=== PATIENT | male | born 1945 | race African-American/Black ===

== ENCOUNTER 2017-02-01 14:43 | Inpatient (IN) | payer MEDICARE, MEDICAID ==
[~2017-02-01] VITALS: Ht 172.7 cm; Wt 73.0 kg
[~2017-02-01 14:43] MED LIST: AMLO10TA4 PO; ASPI-1159 PO; ATOR-2 PO; INSU3INS6 SUBCUT; METO100T5 PO; NIFE30TA94 PO; OMEP40CA34 PO; TOBR5DRO45 OP; metoprolol
[2017-02-01] MEDS ORDERED: SODIUM CHLORIDE 0.9% 1,000 ML IV ONE (16:36)
[2017-02-01] MEDS ORDERED: ASPIRIN 81MG TABLET PO ONE (16:45)
[2017-02-01 17:04] LABS: HEMATOCRIT. 33.3 % (42.0-52.0); HEMOGLOBIN. 10.9 g/dL (14.0-18.0); MEAN CORPUSCULAR HEMOGLOBIN 28.2 pg (28.0-32.0); MEAN CORPUSCULAR VOLUME 86.5 fL (80.0-94.0); MEAN PLATELET VOLUME 8.3 fl (7.4-10.4); PLATELET 152 x1000/uL (130-400); RED BLOOD CELL COUNT 3.85 mill/uL (4.7-6.1); RED CELL DISTRIBUTION WIDTH 20.3 % (11.6-14.6)
[2017-02-01 17:11] LABS: INR 1.2; PARTIAL THROMBOPLASTIN TIME 26.8 sec (23.4-31.0)
[2017-02-01] MEDS ORDERED: ONDANSETRON HCL 4MG/2ML VIAL IV STA (17:14)
[2017-02-01] MEDS ORDERED: MORPHINE SULFATE 4 MG/ML CPJ (NOT FOR IM USE) IV STA (17:14)
[2017-02-01 17:18] LABS: CARBON DIOXIDE 28 mEq/L (21-32); CHLORIDE 106 mEq/L (98-107); TROPONIN I 0.07 ng/mL (0.00-0.04)
[2017-02-01 17:19] LABS: CREATINE KINASE MB FRACTION 2.2 ng/mL (0.5-3.6)
[2017-02-01 17:26] LABS: PLATELET ESTIMATE NORMAL
[2017-02-01] MEDS ORDERED: POTASSIUM CHLORIDE 20MEQ TABLET SR PO ONE (18:30)
[2017-02-01] MEDS ORDERED: HYDRALAZINE 20MG/ML VIAL IV ONE (22:45)
[2017-02-01] MEDS ORDERED: DOCUSATE SODIUM 100MG CAPSULE PO PRN (23:45)
[2017-02-01] MEDS ORDERED: IPRATROPIUM/ALBUTEROL 0.5-3(2.5)MG/3ML NEB INH PRN (23:45)
[2017-02-01] MEDS ORDERED: ACETAMINOPHEN 325MG TABLET PO PRN (23:45)
[2017-02-01] MEDS ORDERED: GUAIFENESIN 200MG/10ML SUGAR FREE UDC PO PRN (23:45)
[2017-02-01] MEDS ORDERED: ACETAMINOPHEN 650MG SUPP PR PRN (23:45)
[2017-02-01] MEDS ORDERED: DIPHENHYDRAMINE 50MG/ML VIAL IV PRN (23:45)
[2017-02-01] MEDS ORDERED: ACETAMINOPHEN 650MG/20.3ML UDC GT PRN (23:45)
[2017-02-01] MEDS ORDERED: ONDANSETRON HCL 4MG/2ML VIAL IV PRN (23:45)
[2017-02-01] MEDS ORDERED: CLONIDINE 0.1MG TABLET PO PRN (23:45)
[2017-02-01] MEDS ORDERED: ENOXAPARIN 40MG/0.4ML SYR SUBCUT SCH (23:45)
[2017-02-01] MEDS ORDERED: MAGNESIUM/ALUMINUM HYDROXIDE/SIMETHICONE 30ML UDC PO PRN (23:45)
[2017-02-02] MEDS ORDERED: OXYC30TA89 PO (00:03)
[2017-02-02] MEDS ORDERED: LOPE2TAB26 PO (00:03)
[2017-02-02] MEDS ORDERED: ISOS60TA4 PO (00:03)
[2017-02-02 04:00] VITALS: BP 145/73
[2017-02-02] MEDS: MORPHINE SULFATE 2 MG/ML CPJ (NOT FOR IM USE) IV PRN ×2 (04:56→20:51)
[2017-02-02 05:00] VITALS: BP 145/73
[2017-02-02] MEDS ORDERED: NA PHOS,M-B/NA PHOS,DI-BA ENEMA 118ML PR PRN (05:04)
[2017-02-02] MEDS: SODIUM CHLORIDE 0.9% INJ 3ML FLUSH IVF SCH ×3 (06:27→20:44)
[2017-02-02 08:00] VITALS: BP 144/90
[2017-02-02 08:30] LABS: HEMATOCRIT. 33.8 % (42.0-52.0); MEAN CORPUSCULAR VOLUME 86.1 fL (80.0-94.0); MEAN PLATELET VOLUME 8.6 fl (7.4-10.4); PLATELET 157 x1000/uL (130-400); RED BLOOD CELL COUNT 3.93 mill/uL (4.7-6.1); RED CELL DISTRIBUTION WIDTH 19.9 % (11.6-14.6)
[2017-02-02] MEDS ORDERED: ENOXAPARIN 30MG/0.3ML SYR SUBCUT SCH ×2 (09:00→21:00)
[2017-02-02 09:01] LABS: TROPONIN I 0.09 ng/mL (0.00-0.04)
[2017-02-02] MEDS ORDERED: POTASSIUM CHLORIDE 20MEQ TABLET SR PO NR (09:30)
[2017-02-02 09:50] LABS: PLATELET ESTIMATE NORMAL
[2017-02-02 11:22] LABS: T4 FREE 1.58 ng/dL (0.76-1.46)
[2017-02-02 12:00] VITALS: BP 153/83
[2017-02-02] MEDS ORDERED: DEXTROSE 50% WATER 50ML SYRINGE IV PRN (12:30)
[2017-02-02] MEDS: BLOOD SUGAR DIAGNOSTIC STRIP TEST SCH ×3 (12:40→20:47)
[2017-02-02] MEDS: INSULIN LISPRO 100 UNITS/ML SUBCUT SCH ×3 (13:10→20:50)
[2017-02-02] MEDS: METOPROLOL TARTRATE 50MG TABLET PO SCH ×2 (14:10→20:44)
[2017-02-02] MEDS: ISOSORBIDE MONONITRATE 60MG TABLET SR 24HR PO SCH (14:10)
[2017-02-02] MEDS ORDERED: ENOXAPARIN 40MG/0.4ML SYR SUBCUT NR (15:15)
[2017-02-02 16:00] VITALS: BP_SYST 134; BP_SYST 140; BP_DIAS 85; BP_DIAS 87
[2017-02-02 16:38] LABS: CREATINE KINASE MB FRACTION 2.8 ng/mL (0.5-3.6); TROPONIN I 0.09 ng/mL (0.00-0.04)
[2017-02-02 20:07] VITALS: BP 110/60
[2017-02-02] MEDS: ATORVASTATIN CALCIUM 40MG TABLET PO SCH (20:43)
[2017-02-03 00:13] VITALS: BP_SYST 130; BP_SYST 139; BP_DIAS 73; BP_DIAS 77
[2017-02-03 04:00] VITALS: BP 146/68
[2017-02-03] MEDS: SODIUM CHLORIDE 0.9% INJ 3ML FLUSH IVF SCH ×2 (05:22→21:39)
[2017-02-03 06:44] LABS: HEMATOCRIT. 30.8 % (42.0-52.0); MEAN CORPUSCULAR VOLUME 86.1 fL (80.0-94.0); MEAN PLATELET VOLUME 9.1 fl (7.4-10.4); PLATELET 149 x1000/uL (130-400); RED BLOOD CELL COUNT 3.58 mill/uL (4.7-6.1); RED CELL DISTRIBUTION WIDTH 20.5 % (11.6-14.6)
[2017-02-03 07:14] LABS: CREATINE KINASE MB FRACTION 2.7 ng/mL (0.5-3.6); PHOSPHORUS 2.3 mg/dL (2.5-4.9)
[2017-02-03] MEDS: BLOOD SUGAR DIAGNOSTIC STRIP TEST SCH ×4 (07:40→21:41)
[2017-02-03 08:00] VITALS: BP 163/80
[2017-02-03] MEDS: INSULIN LISPRO 100 UNITS/ML SUBCUT SCH ×4 (08:10→21:41)
[2017-02-03] MEDS ORDERED: ENOXAPARIN 30MG/0.3ML SYR SUBCUT SCH (09:00)
[2017-02-03] MEDS: PANTOPRAZOLE 40MG DR TABLET PO SCH (09:08)
[2017-02-03] MEDS: ISOSORBIDE MONONITRATE 60MG TABLET SR 24HR PO SCH (09:08)
[2017-02-03] MEDS: NIFEDIPINE XL 30MG TAB PO SCH (09:08)
[2017-02-03] MEDS: FOLIC ACID/VITAMIN B COMP W-C TABLET PO SCH (09:08)
[2017-02-03] MEDS: ASPIRIN 81MG TABLET PO SCH (09:09)
[2017-02-03] MEDS: METOPROLOL TARTRATE 50MG TABLET PO SCH ×2 (09:09→21:40)
[2017-02-03] MEDS: ENOXAPARIN 80MG/0.8ML SYR SUBCUT SCH (09:10)
[2017-02-03] MEDS ORDERED: POTASSIUM CHLORIDE 20MEQ TABLET SR PO NR (09:45)
[2017-02-03] MEDS: HYDROCODONE/ACETAMINOPHEN 5/325MG TABLET PO PRN ×2 (11:35→23:42)
[2017-02-03 12:00] VITALS: BP 140/80
[2017-02-03] MEDS: SUCRALFATE 1G TABLET PO SCH ×3 (12:40→21:40)
[2017-02-03] MEDS: MORPHINE SULFATE 2 MG/ML CPJ (NOT FOR IM USE) IV PRN ×2 (14:52→21:42)
[2017-02-03 16:00] VITALS: BP 138/79
[2017-02-03 17:48] LABS: PLATELET ESTIMATE NORMAL
[2017-02-03 20:40] VITALS: BP 132/70
[2017-02-03] MEDS: ATORVASTATIN CALCIUM 40MG TABLET PO SCH (21:40)
[2017-02-04 01:49] VITALS: BP 143/84
[2017-02-04 04:00] VITALS: BP 150/69
[2017-02-04] MEDS: SODIUM CHLORIDE 0.9% INJ 3ML FLUSH IVF SCH ×2 (04:56→13:07)
[2017-02-04 06:38] LABS: HEMATOCRIT. 30.9 % (42.0-52.0); HEMOGLOBIN. 10.2 g/dL (14.0-18.0); MEAN CORPUSCULAR HEMOGLOBIN 28.7 pg (28.0-32.0); MEAN CORPUSCULAR VOLUME 87.3 fL (80.0-94.0); MEAN PLATELET VOLUME 8.8 fl (7.4-10.4); PLATELET 139 x1000/uL (130-400); RED BLOOD CELL COUNT 3.54 mill/uL (4.7-6.1); RED CELL DISTRIBUTION WIDTH 20.3 % (11.6-14.6)
[2017-02-04 07:03] LABS: PREALBUMIN 22.6 mg/dL (20.0-40.0)
[2017-02-04] MEDS: INSULIN LISPRO 100 UNITS/ML SUBCUT SCH (07:59)
[2017-02-04] MEDS: BLOOD SUGAR DIAGNOSTIC STRIP TEST SCH (07:59)
[2017-02-04 08:00] VITALS: BP 144/89
[2017-02-04] MEDS ORDERED: POTASSIUM CHLORIDE 20MEQ TABLET SR PO SCH (09:00)
[2017-02-04] MEDS: NIFEDIPINE XL 30MG TAB PO SCH (09:34)
[2017-02-04] MEDS: ASPIRIN 81MG TABLET PO SCH (09:35)
[2017-02-04] MEDS: ISOSORBIDE MONONITRATE 60MG TABLET SR 24HR PO SCH (09:35)
[2017-02-04] MEDS: METOPROLOL TARTRATE 50MG TABLET PO SCH (09:35)
[2017-02-04] MEDS: PANTOPRAZOLE 40MG DR TABLET PO SCH (09:35)
[2017-02-04] MEDS: FOLIC ACID/VITAMIN B COMP W-C TABLET PO SCH (09:35)
[2017-02-04] MEDS: ENOXAPARIN 80MG/0.8ML SYR SUBCUT SCH (09:36)
[2017-02-04] MEDS ORDERED: POTASSIUM PHOS,M-BASIC-D-BASIC 20 MMOL in DEXT 5% WATER 250 ML IV SCH (10:30)
[2017-02-04 12:00] VITALS: BP 141/86
[2017-02-04 13:00] VITALS: BP 141/82
[2017-02-04 16:00] VITALS: BP 148/89
[2017-02-04 16:52] LABS: PLATELET ESTIMATE SLIGHTLY DECREASED
[2017-02-05] MEDS ORDERED: FAMOTIDINE 20MG TABLET PO SCH (07:40)
[2017-02-05 09:06] LABS: A/G RATIO 0.9 (0.7-1.7); ALBUMIN 3.2 g/dL (2.9-4.4); ALPHA-1-GLOBULIN 0.2 g/dL (0.0-0.4); ALPHA-2-GLOBULIN 0.6 g/dL (0.4-1.0); BETA GLOBULIN 0.7 g/dL (0.7-1.3); GLOBULIN TOTAL 3.6 g/dL (2.2-3.9); M-SPIKE 0.5 g/dL (Not Observed); TOTAL PROTEIN SERUM 6.8 g/dL (6.0-8.5)
== END 2017-02-04 19:04 | disposition home or self-care (01) | DRG 291 ==
LOC: ER 14:43 → 7WST 02-02 00:10 → EDBEDREQ 02-02 00:14 → ENRESERV 02-02 01:49
PROVIDERS: ADMIT Family Medicine; ATTEND Family Medicine
DX: I13.2 Hypertensive heart and chronic kidney disease with heart failure and with stage 5 chronic kidney disease, or end stage renal disease (principal); N18.6 End stage renal disease; N17.9 Acute kidney failure, unspecified; I82.402 Acute embolism and thrombosis of unspecified deep veins of left lower extremity; E46 Unspecified protein-calorie malnutrition; I27.20 Pulmonary hypertension, unspecified; E83.39 Other disorders of phosphorus metabolism; E11.22 Type 2 diabetes mellitus with diabetic chronic kidney disease; I50.23 Acute on chronic systolic (congestive) heart failure; R55 Syncope and collapse; I42.9 Cardiomyopathy, unspecified; D64.9 Anemia, unspecified; I35.1 Nonrheumatic aortic (valve) insufficiency; D72.819 Decreased white blood cell count, unspecified; E78.5 Hyperlipidemia, unspecified; E87.6 Hypokalemia; F12.90 Cannabis use, unspecified, uncomplicated; I25.10 Atherosclerotic heart disease of native coronary artery without angina pectoris; K21.9 Gastro-esophageal reflux disease without esophagitis; K40.90 Unilateral inguinal hernia, without obstruction or gangrene, not specified as recurrent; Z79.4 Long term (current) use of insulin; Z82.49 Family history of ischemic heart disease and other diseases of the circulatory system; Z85.830 Personal history of malignant neoplasm of bone; Z86.718 Personal history of other venous thrombosis and embolism; Z87.891 Personal history of nicotine dependence; Z99.2 Dependence on renal dialysis; Z68.24 Body mass index [BMI] 24.0-24.9, adult
CPT/HCPCS: 36415; 71010; 78582; 80048; 80053; 80061; 82550; 82553; 82784; 82962; 83036; 83735; 83880; 84100; 84134; 84155; 84165; 84439; 84443; 84484; 85025; 85379; 85610; 85730; 86334; 87040; 93005; 93306; 93970; 97162; 99285; A9558; J0360; J1650; J1815; J2270; J2405; J3490; J7030; J7050; J7060

== ENCOUNTER 2017-03-30 17:50 | Inpatient (IN) | payer MEDICARE, MEDICAID ==
[~2017-03-30] VITALS: Ht 175.3 cm; Wt 85.3 kg
[~2017-03-30 17:50] MED LIST changes: +ISOS60TA4 PO; +LOPE2TAB26 PO; +METO100T16 PO; -METO100T5 PO; +OXYC30TA89 PO; -metoprolol
[2017-03-30] MEDS ORDERED: MORPHINE SULFATE 2 MG/ML CPJ (NOT FOR IM USE) IV ONE (22:30)
[2017-03-30 23:00] LABS: BASOPHILS % 0.4 % (0.0-2.0); EOSINOPHILS % 13.5 % (0.0-5.0); LYMPHOCYTES % 17.9 % (20.0-50.0); MEAN CORPUSCULAR HEMOGLOBIN 28.9 pg (28.0-32.0); MEAN CORPUSCULAR VOLUME 88.8 fL (80.0-94.0); MEAN PLATELET VOLUME 11.2 fl (7.4-10.4); MONOCYTES % 19.9 % (2.0-8.0); NEUTROPHILS % 48.3 % (40.0-76.0); PLATELET 108 x1000/uL (130-400); RED BLOOD CELL COUNT 2.33 mill/uL (4.7-6.1); RED CELL DISTRIBUTION WIDTH 15.4 % (11.6-14.6)
[2017-03-30 23:03] LABS: HEMATOCRIT. 20.7 % (42.0-52.0); HEMOGLOBIN. 6.7 g/dL (14.0-18.0)
[2017-03-30 23:05] LABS: CHLORIDE 108 mEq/L (98-107)
[2017-03-30 23:13] LABS: CARBON DIOXIDE 27 mEq/L (21-32)
[2017-03-31] VITALS (10 sets, daily range): BP systolic 104–143; BP diastolic 38–80
[2017-03-31] MEDS ORDERED: ACETAMINOPHEN 325MG TABLET PO ONE (02:30)
[2017-03-31] MEDS ORDERED: ONDANSETRON HCL 4MG/2ML VIAL IV PRN (03:45)
[2017-03-31] MEDS ORDERED: DEXTROSE 50% WATER 50ML SYRINGE IV PRN (03:45)
[2017-03-31] MEDS: MORPHINE SULFATE 2 MG/ML CPJ (NOT FOR IM USE) IV PRN (06:05)
[2017-03-31] MEDS: BLOOD SUGAR DIAGNOSTIC STRIP TEST SCH ×2 (06:38→12:28)
[2017-03-31] MEDS: INSULIN LISPRO 100 UNITS/ML SUBCUT SCH ×2 (07:50→12:28)
[2017-03-31] MEDS: PANTOPRAZOLE SODIUM 40 MG/VIAL IV SCH (08:19)
[2017-03-31] MEDS: DOCUSATE SODIUM 100MG CAPSULE PO SCH (08:19)
[2017-03-31] MEDS ORDERED: OXYCODONE HCL 5MG TABLET PO PRN (14:00)
[2017-03-31] MEDS ORDERED: POTASSIUM CHLORIDE 20MEQ/PACKET PO NR (14:15)
[2017-03-31] MEDS ORDERED: FUROSEMIDE 20MG/2ML VIAL IVP NR (14:15)
[2017-03-31] MEDS: ISOSORBIDE MONONITRATE 120MG TABLET SR 24HR PO SCH (15:00)
[2017-03-31 15:02] LABS: CLARITY URINE CLEAR (CLEAR); COLOR URINE YELLOW (YELLOW); KETONES URINE NEGATIVE (NEGATIVE); LEUKOCYTE ESTERASE URINE NEGATIVE (NEGATIVE); NITRITE URINE NEGATIVE (NEGATIVE); OCCULT BLOOD URINE NEGATIVE (NEGATIVE); PROTEIN URINE 1+ (NEGATIVE); SPECIFIC GRAVITY URINE 1.018 (1.005-1.030); UROBILINOGEN URINE 0.2 E.U./dL (0.2-1.0)
[2017-03-31 15:30] LABS: *AMPHETAMINES SCREEN URINE NEGATIVE (NEGATIVE); *BARBITURATES SCREEN URINE NEGATIVE (NEGATIVE); *BENZODIAZEPINES SCREEN URINE NEGATIVE (NEGATIVE); *COCAINE SCREEN URINE NEGATIVE (NEGATIVE); CANNABINOID URINE SCREEN PRESUMTIVE POSITIVE (NEGATIVE); METHADONE URINE SCREEN NEGATIVE (NEGATIVE); OPIATES URINE SCREEN PRESUMTIVE POSITIVE (NEGATIVE); PHENCYCLIDINE URINE SCREEN NEGATIVE (NEGATIVE)
[2017-03-31 16:46] LABS: HEMOGLOBIN. 7.4 g/dL (14.0-18.0); MEAN CORPUSCULAR HEMOGLOBIN 29.3 pg (28.0-32.0); MEAN CORPUSCULAR VOLUME 87.6 fL (80.0-94.0); MEAN PLATELET VOLUME 10.6 fl (7.4-10.4); PLATELET 97 x1000/uL (130-400); RED BLOOD CELL COUNT 2.51 mill/uL (4.7-6.1); RED CELL DISTRIBUTION WIDTH 15.1 % (11.6-14.6)
[2017-03-31 17:54] LABS: PLATELET ESTIMATE MARKEDLY DECREASED
[2017-03-31] MEDS ORDERED: POTASSIUM CHLORIDE 20MEQ TABLET SR PO NR ×2 (18:30→21:45)
[2017-03-31] MEDS: FLUCONAZOLE 100MG TABLET PO SCH (19:05)
[2017-03-31] MEDS: ATORVASTATIN CALCIUM 40MG TABLET PO SCH (20:34)
[2017-03-31] MEDS ORDERED: SORBITOL 70% SOLN 30ML PO NR (21:45)
[2017-04-01] VITALS: BP 133/62
[2017-04-01 06:56] LABS: HEMATOCRIT. 21.5 % (42.0-52.0); HEMOGLOBIN. 7.3 g/dL (14.0-18.0); MEAN CORPUSCULAR HEMOGLOBIN 29.9 pg (28.0-32.0); MEAN CORPUSCULAR VOLUME 87.4 fL (80.0-94.0); MEAN PLATELET VOLUME 10.9 fl (7.4-10.4); PLATELET 94 x1000/uL (130-400); RED BLOOD CELL COUNT 2.46 mill/uL (4.7-6.1)
[2017-04-01 07:20] LABS: CARBON DIOXIDE 24 mEq/L (21-32); CHLORIDE 112 mEq/L (98-107); PHOSPHORUS 2.1 mg/dL (2.5-4.9)
[2017-04-01 08:00] VITALS: BP 139/58
[2017-04-01] MEDS: PANTOPRAZOLE SODIUM 40 MG/VIAL IV SCH (08:54)
[2017-04-01] MEDS: ISOSORBIDE MONONITRATE 120MG TABLET SR 24HR PO SCH (08:55)
[2017-04-01] MEDS: DOCUSATE SODIUM 100MG CAPSULE PO SCH (08:55)
[2017-04-01] MEDS: FLUCONAZOLE 100MG TABLET PO SCH (08:55)
[2017-04-01] MEDS ORDERED: POTASSIUM PHOS,M-BASIC-D-BASIC 10 MMOL in DEXT 5% WATER 246.6667 ML IV SCH (10:00)
[2017-04-01] MEDS ORDERED: MAGNESIUM 1 G PREMIX 100 ML IV SCH (10:00)
[2017-04-01 12:00] VITALS: BP 162/67
[2017-04-01] MEDS ORDERED: VANCOMYCIN 1500MG in DEXTROSE 5% WATER 250ML IV NR ×2 (12:00→16:00)
[2017-04-01] MEDS: MORPHINE SULFATE 2 MG/ML CPJ (NOT FOR IM USE) IV PRN ×2 (12:37→20:02)
[2017-04-01 14:32] LABS: PLATELET ESTIMATE DECREASED
[2017-04-01 16:00] VITALS: BP 168/79
[2017-04-01] MEDS: VANCOMYCIN 1 G PREMIX 200 ML IV SCH ×2 (16:47→16:50)
[2017-04-01] MEDS: CEFTRIAXONE 2 G in DEXTROSE 5% WATER 50 ML IV SCH (18:13)
[2017-04-01 20:00] VITALS: BP 168/80
[2017-04-01] MEDS: CLONIDINE 0.1MG TABLET PO PRN (20:01)
[2017-04-01] MEDS: ATORVASTATIN CALCIUM 40MG TABLET PO SCH (20:01)
[2017-04-02] VITALS (10 sets, daily range): BP systolic 120–166; BP diastolic 58–82
[2017-04-02] MEDS: MORPHINE SULFATE 2 MG/ML CPJ (NOT FOR IM USE) IV PRN ×2 (04:35→15:39)
[2017-04-02 08:02] LABS: PHOSPHORUS 2.6 mg/dL (2.5-4.9)
[2017-04-02 08:15] LABS: HAPTOGLOBIN 247 mg/dL (30-200)
[2017-04-02 08:30] LABS: HEMATOCRIT. 21.4 % (42.0-52.0); HEMOGLOBIN. 7.2 g/dL (14.0-18.0); MEAN CORPUSCULAR HEMOGLOBIN 29.7 pg (28.0-32.0); MEAN CORPUSCULAR VOLUME 87.8 fL (80.0-94.0); MEAN PLATELET VOLUME 10.6 fl (7.4-10.4); PLATELET 108 x1000/uL (130-400); RED BLOOD CELL COUNT 2.44 mill/uL (4.7-6.1); RED CELL DISTRIBUTION WIDTH 14.8 % (11.6-14.6)
[2017-04-02] MEDS: PANTOPRAZOLE SODIUM 40 MG/VIAL IV SCH (09:02)
[2017-04-02] MEDS: ISOSORBIDE MONONITRATE 120MG TABLET SR 24HR PO SCH (09:02)
[2017-04-02] MEDS: FLUCONAZOLE 100MG TABLET PO SCH (09:02)
[2017-04-02] MEDS: DOCUSATE SODIUM 100MG CAPSULE PO SCH (09:02)
[2017-04-02 09:35] LABS: PLATELET ESTIMATE SLIGHTLY DECREASED
[2017-04-02] MEDS ORDERED: VANCOMYCIN 1 G PREMIX 200 ML IV SCH (11:00)
[2017-04-02] MEDS ORDERED: SODIUM BICARBONATE 4% (2.4MEQ) 5ML VIAL IV ONE (11:11)
[2017-04-02] MEDS: VANCOMYCIN 1 G PREMIX 200 ML IV SCH (14:00)
[2017-04-02] MEDS: CEFTRIAXONE 2 G in DEXTROSE 5% WATER 50 ML IV SCH (18:49)
[2017-04-02 20:07] LABS: HEMATOCRIT 23.7 % (42.0-52.0); HEMOGLOBIN 7.9 g/dL (14.0-18.0)
[2017-04-02] MEDS: ATORVASTATIN CALCIUM 40MG TABLET PO SCH (20:29)
[2017-04-03] VITALS (10 sets, daily range): BP systolic 141–170; BP diastolic 36–90
[2017-04-03 06:56] LABS: BASOPHILS % 0.1 % (0.0-2.0); EOSINOPHILS % 0.8 % (0.0-5.0); HEMATOCRIT. 22.7 % (42.0-52.0); HEMOGLOBIN. 7.6 g/dL (14.0-18.0); LYMPHOCYTES % 13.9 % (20.0-50.0); MEAN CORPUSCULAR HEMOGLOBIN 29.3 pg (28.0-32.0); MEAN CORPUSCULAR VOLUME 87.9 fL (80.0-94.0); MEAN PLATELET VOLUME 9.9 fl (7.4-10.4); MONOCYTES % 25.8 % (2.0-8.0); NEUTROPHILS % 59.4 % (40.0-76.0); PLATELET 119 x1000/uL (130-400); RED BLOOD CELL COUNT 2.59 mill/uL (4.7-6.1); RED CELL DISTRIBUTION WIDTH 14.9 % (11.6-14.6)
[2017-04-03] MEDS: VANCOMYCIN 1 G PREMIX 200 ML IV SCH ×2 (09:00→11:50)
[2017-04-03] MEDS: ISOSORBIDE MONONITRATE 120MG TABLET SR 24HR PO SCH (09:00)
[2017-04-03] MEDS: PANTOPRAZOLE SODIUM 40 MG/VIAL IV SCH ×2 (09:00→11:50)
[2017-04-03 09:12] LABS: KAPPA LT CHAINS FREE SERUM 154.8 mg/L (3.3-19.4); KAPPA/LAMBDA RATIO 1.43 (0.26-1.65); LAMBDA LT CHAINS FREE SERUM 108.2 mg/L (5.7-26.3)
[2017-04-03] MEDS: FLUCONAZOLE 100MG TABLET PO SCH (09:54)
[2017-04-03] MEDS: DOCUSATE SODIUM 100MG CAPSULE PO SCH (09:55)
[2017-04-03] MEDS: MORPHINE SULFATE 2 MG/ML CPJ (NOT FOR IM USE) IV PRN ×2 (11:51→20:39)
[2017-04-03] MEDS: POTASSIUM CHLORIDE 20MEQ TABLET SR PO NR (15:26)
[2017-04-03] MEDS: CLONIDINE 0.1MG TABLET PO PRN (16:14)
[2017-04-03] MEDS: CEFTRIAXONE 2 G in DEXTROSE 5% WATER 50 ML IV SCH (19:06)
[2017-04-03] MEDS: ATORVASTATIN CALCIUM 40MG TABLET PO SCH (20:24)
[2017-04-04] VITALS: BP 168/67
[2017-04-04] MEDS: MORPHINE SULFATE 2 MG/ML CPJ (NOT FOR IM USE) IV PRN ×3 (01:03→20:06)
[2017-04-04 04:00] VITALS: BP 159/80
[2017-04-04 07:20] LABS: HEMATOCRIT. 26.5 % (42.0-52.0); MEAN CORPUSCULAR HEMOGLOBIN 29.7 pg (28.0-32.0); MEAN CORPUSCULAR VOLUME 87.6 fL (80.0-94.0); MEAN PLATELET VOLUME 9.1 fl (7.4-10.4); PLATELET 139 x1000/uL (130-400); RED BLOOD CELL COUNT 3.03 mill/uL (4.7-6.1)
[2017-04-04] MEDS: VANCOMYCIN 1 G PREMIX 200 ML IV SCH (09:30)
[2017-04-04] MEDS: DOCUSATE SODIUM 100MG CAPSULE PO SCH ×2 (09:30→18:42)
[2017-04-04] MEDS: FLUCONAZOLE 100MG TABLET PO SCH (09:33)
[2017-04-04] MEDS: ISOSORBIDE MONONITRATE 120MG TABLET SR 24HR PO SCH (09:33)
[2017-04-04] MEDS ORDERED: POTASSIUM CHLORIDE 20MEQ/PACKET PO SCH (09:45)
[2017-04-04] MEDS ORDERED: MAGNESIUM 1 G PREMIX 100 ML IV SCH ×2 (11:00→14:00)
[2017-04-04 12:00] VITALS: BP 144/61
[2017-04-04 13:24] LABS: PLATELET ESTIMATE NORMAL
[2017-04-04] MEDS: LOSARTAN POTASSIUM 25 MG TABLET PO SCH (13:41)
[2017-04-04] MEDS ORDERED: LIDOCAINE HCL 1% 20ML VIAL (Pyxis) INJ INJ ONE (14:00)
[2017-04-04] MEDS ORDERED: TRIAMCINOLONE ACETONIDE 40MG/ML 1ML VIAL IJ NR (14:00)
[2017-04-04] MEDS ORDERED: ETHYL CHLORIDE CAN TOP NR (14:00)
[2017-04-04] MEDS: POTASSIUM CHLORIDE 20MEQ TABLET SR PO NR (14:30)
[2017-04-04 16:00] VITALS: BP 149/59
[2017-04-04] MEDS: CEFTRIAXONE 2 G in DEXTROSE 5% WATER 50 ML IV SCH (18:43)
[2017-04-04 20:00] VITALS: BP 145/87
[2017-04-04] MEDS: ATORVASTATIN CALCIUM 40MG TABLET PO SCH (20:04)
[2017-04-05] VITALS: BP 139/82
[2017-04-05] MEDS: MORPHINE SULFATE 2 MG/ML CPJ (NOT FOR IM USE) IV PRN (02:34)
[2017-04-05 04:00] VITALS: BP 150/82
[2017-04-05 06:48] LABS: HEMATOCRIT. 27.8 % (42.0-52.0); HEMOGLOBIN. 9.3 g/dL (14.0-18.0); MEAN CORPUSCULAR HEMOGLOBIN 29.3 pg (28.0-32.0); MEAN PLATELET VOLUME 8.8 fl (7.4-10.4); PLATELET 185 x1000/uL (130-400); RED BLOOD CELL COUNT 3.16 mill/uL (4.7-6.1); RED CELL DISTRIBUTION WIDTH 14.3 % (11.6-14.6)
[2017-04-05 08:00] VITALS: BP 109/79
[2017-04-05] MEDS: DOCUSATE SODIUM 100MG CAPSULE PO SCH (08:49)
[2017-04-05] MEDS: LOSARTAN POTASSIUM 25 MG TABLET PO SCH (08:50)
[2017-04-05] MEDS: PANTOPRAZOLE SODIUM 40 MG/VIAL IV SCH (08:50)
[2017-04-05] MEDS: ISOSORBIDE MONONITRATE 120MG TABLET SR 24HR PO SCH (08:50)
[2017-04-05 09:52] LABS: PLATELET ESTIMATE NORMAL
[2017-04-05 12:00] VITALS: BP 121/76
[2017-04-05 15:10] VITALS: BP 121/76
[2017-04-10] MEDS ORDERED: EPOETIN ALFA 10000UNITS/ML VIAL SUBCUT SCH (21:00)
== END 2017-04-05 16:01 | disposition home or self-care (01) | DRG 840 ==
LOC: ER 20:20 → 6EST 03-31 00:10 → ENRESERV 03-31 01:50
PROVIDERS: ADMIT Family Medicine Adult Medicine; ATTEND Family Medicine Adult Medicine
PROC: 30233N1 Transfusion of Nonautologous Red Blood Cells into Peripheral Vein, Percutaneous Approach (ICD-10-PCS; 2017-03-31)
PROC: 0S9C3ZZ Drainage of Right Knee Joint, Percutaneous Approach (ICD-10-PCS; 2017-04-02)
PROC: 02HV33Z Insertion of Infusion Device into Superior Vena Cava, Percutaneous Approach (ICD-10-PCS; principal; 2017-04-03)
PROC: B548ZZA Ultrasonography of Superior Vena Cava, Guidance (ICD-10-PCS; 2017-04-03)
PROC: B5181ZA Fluoroscopy of Superior Vena Cava using Low Osmolar Contrast, Guidance (ICD-10-PCS; 2017-04-03)
DX: C90.00 Multiple myeloma not having achieved remission (principal); D61.810 Antineoplastic chemotherapy induced pancytopenia; E43 Unspecified severe protein-calorie malnutrition; I82.431 Acute embolism and thrombosis of right popliteal vein; D64.81 Anemia due to antineoplastic chemotherapy; E11.22 Type 2 diabetes mellitus with diabetic chronic kidney disease; N18.4 Chronic kidney disease, stage 4 (severe); E11.65 Type 2 diabetes mellitus with hyperglycemia; E83.39 Other disorders of phosphorus metabolism; I13.0 Hypertensive heart and chronic kidney disease with heart failure and stage 1 through stage 4 chronic kidney disease, or unspecified chronic kidney disease; I50.20 Unspecified systolic (congestive) heart failure; I82.503 Chronic embolism and thrombosis of unspecified deep veins of lower extremity, bilateral; T45.1X5A Adverse effect of antineoplastic and immunosuppressive drugs, initial encounter; I27.20 Pulmonary hypertension, unspecified; E78.5 Hyperlipidemia, unspecified; F12.90 Cannabis use, unspecified, uncomplicated; F17.200 Nicotine dependence, unspecified, uncomplicated; G89.29 Other chronic pain; I25.10 Atherosclerotic heart disease of native coronary artery without angina pectoris; K59.00 Constipation, unspecified; M10.9 Gout, unspecified; M17.11 Unilateral primary osteoarthritis, right knee; M79.5 Residual foreign body in soft tissue; M54.9 Dorsalgia, unspecified; Z59.0 Homelessness; Z79.4 Long term (current) use of insulin; Z82.49 Family history of ischemic heart disease and other diseases of the circulatory system; Z99.2 Dependence on renal dialysis; Y92.89 Other specified places as the place of occurrence of the external cause; Z68.27 Body mass index [BMI] 27.0-27.9, adult
CPT/HCPCS: 20611; 36415; 36430; 36569; 71010; 73562; 74000; 76937; 76942; 77001; 80048; 80053; 80076; 80202; 80305; 81001; 82270; 82784; 82962; 83010; 83540; 83550; 83615; 83735; 83883; 84100; 84550; 85014; 85018; 85025; 86334; 86850; 86900; 86920; 87040; 87070; 87086; 87205; 89050; 89060; 93005; 93970; 96374; 97161; 97166; 99285; C1725; C1893; C9113; J0696; J1940; J2270; J2405; J3301; J3370; J3475; J3490; J7030; J7060; P9016

== ENCOUNTER 2017-04-24 12:10 | Emergency (ER) | payer MEDICARE, MEDICAID ==
[~2017-04-24] VITALS: Ht 172.7 cm; Wt 73.0 kg
[2017-04-24 17:02] LABS: BASOPHILS % 0.9 % (0.0-2.0); EOSINOPHILS % 3.7 % (0.0-5.0); HEMATOCRIT. 26.4 % (42.0-52.0); HEMOGLOBIN. 8.5 g/dL (14.0-18.0); LYMPHOCYTES % 22.9 % (20.0-50.0); MEAN CORPUSCULAR HEMOGLOBIN 29.7 pg (28.0-32.0); MEAN CORPUSCULAR VOLUME 92.7 fL (80.0-94.0); MEAN PLATELET VOLUME 8.1 fl (7.4-10.4); MONOCYTES % 6.5 % (2.0-8.0); PLATELET 56 x1000/uL (130-400); RED BLOOD CELL COUNT 2.85 mill/uL (4.7-6.1); RED CELL DISTRIBUTION WIDTH 15.8 % (11.6-14.6)
[2017-04-24 17:08] LABS: CHLORIDE 109 mEq/L (98-107)
[2017-04-24 17:16] LABS: CARBON DIOXIDE 25 mEq/L (21-32)
[2017-04-24] MEDS ORDERED: KETOROLAC 15MG/ML VIAL IV ONE (17:30)
[2017-04-24 17:51] VITALS: BP 145/91
== END 2017-04-24 17:53 | disposition home or self-care (01) ==
LOC: ER 13:44
DX: D64.9 Anemia, unspecified (principal); C90.00 Multiple myeloma not having achieved remission; E11.9 Type 2 diabetes mellitus without complications; I10 Essential (primary) hypertension; F17.200 Nicotine dependence, unspecified, uncomplicated; F12.10 Cannabis abuse, uncomplicated; Z79.4 Long term (current) use of insulin; Z79.82 Long term (current) use of aspirin
CPT/HCPCS: 36415; 80048; 80053; 85025; 86850; 86900; 86901; 96374; 99284; J1885

== ENCOUNTER 2017-12-05 09:14 | Inpatient (IN) | payer MEDICARE, MEDICAID ==
[~2017-12-05] VITALS: Ht 172.7 cm; Wt 72.6 kg
[2017-12-05] VITALS (8 sets, daily range): BP systolic 138–164; BP diastolic 68–89
[~2017-12-05 09:14] MED LIST changes: -INSU3INS6 SUBCUT; -ISOS60TA4 PO; -LOPE2TAB26 PO; -METO100T16 PO; -NIFE30TA94 PO; -OMEP40CA34 PO; -OXYC30TA89 PO; -TOBR5DRO45 OP
[2017-12-05] MEDS ORDERED: MORPHINE SULFATE 4 MG/ML CPJ (NOT FOR IM USE) IV STA (09:21)
[2017-12-05] MEDS ORDERED: ONDANSETRON HCL 4MG/2ML VIAL IV STA (09:21)
[2017-12-05 09:56] LABS: BASOPHILS % 0.4 % (0.0-2.0); HEMATOCRIT. 21.1 % (42.0-52.0); LYMPHOCYTES % 16.8 % (20.0-50.0); MEAN CORPUSCULAR HEMOGLOBIN 28.7 pg (28.0-32.0); MEAN CORPUSCULAR VOLUME 86.8 fL (80.0-94.0); MONOCYTES % 10.2 % (2.0-8.0); NEUTROPHILS % 71.6 % (40.0-76.0); RED BLOOD CELL COUNT 2.43 mill/uL (4.7-6.1); RED CELL DISTRIBUTION WIDTH 15.9 % (11.6-14.6)
[2017-12-05 10:02] LABS: CHLORIDE 115 mEq/L (98-107); PROTHROMBIN TIME 10.1 sec (9.1-11.1)
[2017-12-05 10:40] LABS: PLATELET 269 x1000/uL (130-400)
[2017-12-05] MEDS ORDERED: MORPHINE SULFATE 4 MG/ML CPJ (NOT FOR IM USE) IV ONE (10:45)
[2017-12-05] MEDS ORDERED: GUAIFENESIN 200MG/10ML SUGAR FREE UDC PO PRN (15:30)
[2017-12-05] MEDS ORDERED: ACETAMINOPHEN 325MG TABLET PO PRN (15:30)
[2017-12-05] MEDS ORDERED: CLONIDINE 0.1MG TABLET PO PRN (15:30)
[2017-12-05] MEDS ORDERED: MAGNESIUM HYDROXIDE 400MG/5ML 30ML UDC PO PRN (15:30)
[2017-12-05] MEDS ORDERED: MAGNESIUM/ALUMINUM HYDROXIDE/SIMETHICONE 30ML UDC PO PRN (15:30)
[2017-12-05] MEDS ORDERED: IPRATROPIUM/ALBUTEROL 0.5-3(2.5)MG/3ML NEB INH PRN (15:30)
[2017-12-05] MEDS ORDERED: DIPHENHYDRAMINE 50MG/ML VIAL IV PRN (15:30)
[2017-12-05] MEDS ORDERED: MORPHINE SULFATE 4 MG/ML CPJ (NOT FOR IM USE) IV PRN (15:55)
[2017-12-05] MEDS ORDERED: ONDANSETRON 4MG ODT PO PRN (16:30)
[2017-12-05] MEDS ORDERED: OXYCODONE HCL 5MG TABLET PO PRN (17:00)
[2017-12-05] MEDS: OMEPRAZOLE 20MG CAPSULE EXTENDED RELEASE PO SCH (20:25)
[2017-12-05] MEDS: SODIUM CHLORIDE 0.9% 1,000 ML IV SCH (20:26)
[2017-12-05] MEDS: OXYCODONE HCL 5MG TABLET PO PRN (22:49)
[2017-12-05 23:43] LABS: VITAMIN B12 SERUM 330 pg/mL (211-911)
[2017-12-06] VITALS (10 sets, daily range): BP systolic 124–165; BP diastolic 64–90
[2017-12-06 08:13] LABS: HEMATOCRIT 21.2 % (42.0-52.0); MEAN CORPUSCULAR HEMOGLOBIN 28.9 pg (28.0-32.0); MEAN CORPUSCULAR VOLUME 86.8 fL (80.0-94.0); PLATELET 259 x1000/uL (130-400); RED BLOOD CELL COUNT 2.44 mill/uL (4.7-6.1); RED CELL DISTRIBUTION WIDTH 16.1 % (11.6-14.6)
[2017-12-06] MEDS: OMEPRAZOLE 20MG CAPSULE EXTENDED RELEASE PO SCH (08:32)
[2017-12-06] MEDS: OXYCODONE HCL 5MG TABLET PO PRN ×2 (08:32→15:53)
[2017-12-06] MEDS ORDERED: CYANOCOBALAMIN 1000MCG/ML VIAL IM SCH (09:00)
[2017-12-06] MEDS ORDERED: AMLODIPINE 10MG TABLET PO SCH (09:00)
[2017-12-06] MEDS: SODIUM CHLORIDE 0.9% 1,000 ML IV SCH (12:41)
[2017-12-06 17:01] LABS: BASOPHILS % 0.3 % (0.0-2.0); EOSINOPHILS % 1.3 % (0.0-5.0); HEMATOCRIT. 24.4 % (42.0-52.0); HEMOGLOBIN. 8.2 g/dL (14.0-18.0); LYMPHOCYTES % 17.5 % (20.0-50.0); MEAN CORPUSCULAR HEMOGLOBIN 28.7 pg (28.0-32.0); MEAN PLATELET VOLUME 7.5 fl (7.4-10.4); MONOCYTES % 8.3 % (2.0-8.0); NEUTROPHILS % 72.6 % (40.0-76.0); PLATELET 241 x1000/uL (130-400); RED BLOOD CELL COUNT 2.84 mill/uL (4.7-6.1); RED CELL DISTRIBUTION WIDTH 15.8 % (11.6-14.6)
== END 2017-12-06 20:40 | disposition home or self-care (01) | DRG 811 ==
LOC: ER 09:34 → CANRESERV 14:25 → 7WST 14:25 → ENRESERV 14:25
PROVIDERS: ADMIT Internal Medicine; ATTEND Internal Medicine
PROC: 30233N1 Transfusion of Nonautologous Red Blood Cells into Peripheral Vein, Percutaneous Approach (ICD-10-PCS; principal; 2017-12-05)
DX: D64.9 Anemia, unspecified (principal); E43 Unspecified severe protein-calorie malnutrition; C90.00 Multiple myeloma not having achieved remission; R18.8 Other ascites; R10.9 Unspecified abdominal pain; E11.22 Type 2 diabetes mellitus with diabetic chronic kidney disease; I25.10 Atherosclerotic heart disease of native coronary artery without angina pectoris; J44.9 Chronic obstructive pulmonary disease, unspecified; I12.9 Hypertensive chronic kidney disease with stage 1 through stage 4 chronic kidney disease, or unspecified chronic kidney disease; N18.9 Chronic kidney disease, unspecified; Z82.49 Family history of ischemic heart disease and other diseases of the circulatory system; I25.2 Old myocardial infarction; Z68.24 Body mass index [BMI] 24.0-24.9, adult; Z86.718 Personal history of other venous thrombosis and embolism; Z98.49 Cataract extraction status, unspecified eye; Z79.82 Long term (current) use of aspirin; Z79.899 Other long term (current) drug therapy
CPT/HCPCS: 36415; 74176; 80053; 82607; 83036; 83690; 85025; 85027; 85610; 86850; 86900; 86920; 93970; 96374; 96375; 96376; 99285; J2270; J2405; J3420; J7030; J7040; J7050; P9016

== ENCOUNTER 2017-12-07 16:26 | Inpatient (IN) | payer MEDICARE, MEDICAID ==
[~2017-12-07] VITALS: Ht 172.7 cm; Wt 86.6 kg
[2017-12-07 18:32] LABS: CHLORIDE 113 mEq/L (98-107); INR 1.1; PROTHROMBIN TIME 11.3 sec (9.1-11.1)
[2017-12-07 18:33] LABS: BASOPHILS % 0.5 % (0.0-2.0); EOSINOPHILS % 0.5 % (0.0-5.0); HEMATOCRIT. 28.7 % (42.0-52.0); HEMOGLOBIN. 9.5 g/dL (14.0-18.0); LYMPHOCYTES % 12.1 % (20.0-50.0); MEAN CORPUSCULAR HEMOGLOBIN 28.4 pg (28.0-32.0); MEAN CORPUSCULAR VOLUME 85.4 fL (80.0-94.0); MEAN PLATELET VOLUME 7.6 fl (7.4-10.4); MONOCYTES % 5.5 % (2.0-8.0); NEUTROPHILS % 81.4 % (40.0-76.0); PLATELET 286 x1000/uL (130-400); RED BLOOD CELL COUNT 3.36 mill/uL (4.7-6.1); RED CELL DISTRIBUTION WIDTH 15.9 % (11.6-14.6)
[2017-12-07] MEDS ORDERED: ONDANSETRON HCL 4MG/2ML INJ IV STA (18:51)
[2017-12-07] MEDS ORDERED: MORPHINE SULFATE 4 MG/ML CPJ (NOT FOR IM USE) IV STA (18:51)
[2017-12-07] MEDS ORDERED: SODIUM CHLORIDE 0.9% 1,000 ML IV ONE (18:51)
[2017-12-08] VITALS (8 sets, daily range): BP systolic 142–168; BP diastolic 78–88
[2017-12-08 04:58] LABS: CLARITY URINE CLEAR (CLEAR); COLOR URINE YELLOW (YELLOW); KETONES URINE NEGATIVE (NEGATIVE); LEUKOCYTE ESTERASE URINE NEGATIVE (NEGATIVE); NITRITE URINE NEGATIVE (NEGATIVE); OCCULT BLOOD URINE NEGATIVE (NEGATIVE); PROTEIN URINE 2+ (NEGATIVE); SPECIFIC GRAVITY URINE 1.017 (1.005-1.030)
[2017-12-08] MEDS ORDERED: CLONIDINE 0.1MG TABLET PO PRN (08:15)
[2017-12-08] MEDS ORDERED: ONDANSETRON HCL 4MG/2ML INJ IV PRN (08:15)
[2017-12-08] MEDS ORDERED: ONDANSETRON 4MG ODT PO PRN (08:45)
[2017-12-08] MEDS: HYDROMORPHONE HCL/PF 2MG/ML CPJ IV PRN ×2 (10:03→20:04)
[2017-12-09] VITALS (7 sets, daily range): BP systolic 101–163; BP diastolic 59–82
[2017-12-09] MEDS: HYDROMORPHONE HCL/PF 2MG/ML CPJ IV PRN ×5 (00:15→20:27)
[2017-12-09 09:33] LABS: HEMATOCRIT. 29.7 % (42.0-52.0); HEMOGLOBIN. 9.7 g/dL (14.0-18.0); MEAN CORPUSCULAR HEMOGLOBIN 28.1 pg (28.0-32.0); MEAN CORPUSCULAR VOLUME 85.9 fL (80.0-94.0); MEAN PLATELET VOLUME 7.9 fl (7.4-10.4); PLATELET 298 x1000/uL (130-400); RED BLOOD CELL COUNT 3.45 mill/uL (4.7-6.1); RED CELL DISTRIBUTION WIDTH 16.3 % (11.6-14.6)
[2017-12-09 09:49] LABS: CHLORIDE 113 mEq/L (98-107)
[2017-12-09 13:17] LABS: PLATELET ESTIMATE NORMAL
[2017-12-09] MEDS: DEXT 5%/0.9% NACL 1,000 ML IV SCH (17:18)
[2017-12-09] MEDS ORDERED: ACETAMINOPHEN 650MG/20.3ML UDC PO PRN (18:00)
[2017-12-09] MEDS ORDERED: DILTIAZEM HCL 30MG TABLET PO PRN (20:45)
[2017-12-09] MEDS ORDERED: DILTIAZEM HCL 5MG/ML 5ML VIAL IV NR (22:45)
[2017-12-10] VITALS (57 sets, daily range): BP systolic 81–129; BP diastolic 42–84
[2017-12-10] MEDS: HYDROMORPHONE HCL/PF 2MG/ML CPJ IV PRN ×3 (00:59→20:29)
[2017-12-10] MEDS: DEXT 5%/0.9% NACL 1,000 ML IV SCH (05:33)
[2017-12-10] MEDS ORDERED: LIDOCAINE HCL 2% JELLY 5ML MM NR (09:15)
[2017-12-10] MEDS ORDERED: ONDANSETRON HCL 4MG/2ML INJ IV PRN (09:15)
[2017-12-10 09:29] LABS: BG BASE EXCESS -14.8 mmol/L (-2.0-2.0); BG CARBOXYHEMOGLOBIN 0.9 % (0.5-1.5); BG DEOXYHEMOGLOBIN 3.2 % (0.0-5.0); BG FRACTION INSPIRED OXYGEN 36; BG HCO3 ACT 7.5 mmol/L (22.0-26.0); BG METHEMOGLOBIN 0.3 % (0.0-1.5); BG OXYGEN SATURATION 96.8 % (92.0-98.5); BG OXYHEMOGLOBIN 95.6 % (94.0-97.0); BG PCO2 12.7 mmHg (35.0-45.0); BG PH 7.391 (7.350-7.450); BG PO2 92.5 mmHg (75.0-100.0); BG SAMPLE SITE RIGHT RADIAL; BG TOTAL HEMOGLOBIN 11.1 g/dL (12.0-18.0); BG VENT MODE NASAL CANNULA
[2017-12-10] MEDS ORDERED: PANTOPRAZOLE SODIUM 40 MG/VIAL IV NR (12:30)
[2017-12-10 12:36] LABS: CHLORIDE 113 mEq/L (98-107)
[2017-12-10] MEDS ORDERED: SODIUM CHLORIDE 0.9% 500 ML IV ONE ×2 (12:45→13:00)
[2017-12-10 13:50] LABS: HEMATOCRIT. 26.8 % (42.0-52.0); HEMOGLOBIN. 8.8 g/dL (14.0-18.0); MEAN CORPUSCULAR HEMOGLOBIN 28.3 pg (28.0-32.0); MEAN CORPUSCULAR VOLUME 86.6 fL (80.0-94.0); MEAN PLATELET VOLUME 8.1 fl (7.4-10.4); PLATELET 292 x1000/uL (130-400); RED CELL DISTRIBUTION WIDTH 16.8 % (11.6-14.6)
[2017-12-10 14:13] LABS: PLATELET ESTIMATE NORMAL
[2017-12-10] MEDS: SODIUM BICARBONATE 150 MEQ in DEXTROSE 5% WATER 1,000 ML IV SCH ×2 (14:30→22:55)
[2017-12-10 14:42] LABS: BG BASE EXCESS -12.5 mmol/L (-2.0-2.0); BG CARBOXYHEMOGLOBIN 0.4 % (0.5-1.5); BG DEOXYHEMOGLOBIN 5.5 % (0.0-5.0); BG FRACTION INSPIRED OXYGEN 40; BG HCO3 ACT 9.6 mmol/L (22.0-26.0); BG METHEMOGLOBIN 0.3 % (0.0-1.5); BG OXYGEN SATURATION 94.5 % (92.0-98.5); BG OXYHEMOGLOBIN 93.8 % (94.0-97.0); BG PCO2 14.7 mmHg (35.0-45.0); BG PH 7.432 (7.350-7.450); BG SAMPLE SITE RIGHT BRACHIAL; BG TOTAL HEMOGLOBIN 9.9 g/dL (12.0-18.0); BG VENT MODE NASAL CANNULA
[2017-12-10] MEDS ORDERED: NOREPINEPHRINE 8 MG in DEXT 5% WATER 242 ML IV PRN (15:30)
[2017-12-10 16:17] LABS: HEMOGLOBIN 9.9 g/dL (14.0-18.0)
[2017-12-10] MEDS ORDERED: SIMETHICONE 40 MG/0.6 ML 30ML ONE (16:49)
[2017-12-10] MEDS ORDERED: MIDAZOLAM HCL 5 MG/5 ML VIAL ONE (16:50)
[2017-12-10] MEDS ORDERED: FENTANYL CITRATE/PF 50MCG/ML 2ML VIAL ONE (16:50)
[2017-12-10] MEDS: CEFEPIME 1,000 MG in DEXTROSE 5% WATER 50 ML IV SCH (17:00)
[2017-12-10] MEDS: METRONIDAZOLE 500 MG PREMIX 100 ML IV SCH (18:05)
[2017-12-10] MEDS ORDERED: SODIUM BICARBONATE 8.4% 1 MEQ/ML 50ML SYR IV SCH (20:15)
[2017-12-10] MEDS: PANTOPRAZOLE SODIUM 40 MG/VIAL IV SCH (20:24)
[2017-12-10] MEDS ORDERED: DEXTROSE 50% WATER 50ML SYRINGE IV PRN (20:30)
[2017-12-10] MEDS: BLOOD SUGAR DIAGNOSTIC STRIP TEST SCH (21:08)
[2017-12-10] MEDS: INSULIN LISPRO 100 UNITS/ML SUBCUT SCH (21:10)
[2017-12-10 23:26] LABS: HEMATOCRIT 25.4 % (42.0-52.0); HEMOGLOBIN 8.4 g/dL (14.0-18.0)
[2017-12-11] VITALS (80 sets, daily range): BP systolic 83–143; BP diastolic 44–97
[2017-12-11] MEDS: METRONIDAZOLE 500 MG PREMIX 100 ML IV SCH ×3 (01:34→18:41)
[2017-12-11 05:29] LABS: HEMATOCRIT. 26.3 % (42.0-52.0); HEMOGLOBIN. 8.8 g/dL (14.0-18.0); MEAN CORPUSCULAR VOLUME 84.1 fL (80.0-94.0); MEAN PLATELET VOLUME 8.4 fl (7.4-10.4); PLATELET 243 x1000/uL (130-400); RED BLOOD CELL COUNT 3.13 mill/uL (4.7-6.1)
[2017-12-11] MEDS: BLOOD SUGAR DIAGNOSTIC STRIP TEST SCH ×4 (05:32→20:26)
[2017-12-11 05:33] LABS: CHLORIDE 113 mEq/L (98-107)
[2017-12-11 05:40] LABS: PHOSPHORUS 2.6 mg/dL (2.5-4.9)
[2017-12-11] MEDS: INSULIN LISPRO 100 UNITS/ML SUBCUT SCH ×4 (06:25→20:26)
[2017-12-11] MEDS: HYDROMORPHONE HCL/PF 2MG/ML CPJ IV PRN (06:27)
[2017-12-11] MEDS ORDERED: ALBUMIN HUMAN 25GM/100ML (25%) IV NR (07:45)
[2017-12-11] MEDS ORDERED: MAGNESIUM 2 G PREMIX 50 ML IV ONE (07:45)
[2017-12-11 08:15] LABS: IMMUNOGLOBULIN A 55 mg/dL (61-437); IMMUNOGLOBULIN G 2493 mg/dL (700-1600); IMMUNOGLOBULIN M 17 mg/dL (15-143)
[2017-12-11 08:29] LABS: BG CARBOXYHEMOGLOBIN 0.4 % (0.5-1.5); BG METHEMOGLOBIN 0.6 % (0.0-1.5); BG PCO2 22.9 mmHg (35.0-45.0); BG PH 7.513 (7.350-7.450); BG PO2 118.5 mmHg (75.0-100.0); BG SAMPLE SITE RIGHT BRACHIAL; BG TOTAL HEMOGLOBIN 8.8 g/dL (12.0-18.0); BG VENT MODE NASAL CANNULA
[2017-12-11] MEDS: PANTOPRAZOLE SODIUM 40 MG/VIAL IV SCH ×2 (08:52→20:15)
[2017-12-11] MEDS: SODIUM BICARBONATE 100 MEQ in DEXTROSE 5% WATER 1,000 ML IV SCH ×2 (08:53→20:15)
[2017-12-11] MEDS ORDERED: MAGNESIUM SULFATE 2 GM in DEXTROSE 5% WATER 50 ML IV NR (09:30)
[2017-12-11 14:25] LABS: PLATELET ESTIMATE NORMAL
[2017-12-11] MEDS: CEFEPIME 1,000 MG in DEXTROSE 5% WATER 50 ML IV SCH (17:46)
[2017-12-11] MEDS: MORPHINE SULFATE 4 MG/ML CPJ (NOT FOR IM USE) IV PRN (21:26)
[2017-12-12] VITALS (47 sets, daily range): BP systolic 88–130; BP diastolic 41–81
[2017-12-12] MEDS: METRONIDAZOLE 500 MG PREMIX 100 ML IV SCH ×3 (01:06→18:19)
[2017-12-12] MEDS: MORPHINE SULFATE 4 MG/ML CPJ (NOT FOR IM USE) IV PRN ×2 (01:07→17:30)
[2017-12-12 05:25] LABS: HEMATOCRIT. 21.9 % (42.0-52.0); HEMOGLOBIN. 7.5 g/dL (14.0-18.0); MEAN CORPUSCULAR HEMOGLOBIN 28.5 pg (28.0-32.0); MEAN CORPUSCULAR VOLUME 82.9 fL (80.0-94.0); MEAN PLATELET VOLUME 8.6 fl (7.4-10.4); PLATELET 182 x1000/uL (130-400); RED BLOOD CELL COUNT 2.64 mill/uL (4.7-6.1); RED CELL DISTRIBUTION WIDTH 16.8 % (11.6-14.6)
[2017-12-12 05:39] LABS: PHOSPHORUS 2.3 mg/dL (2.5-4.9)
[2017-12-12] MEDS: SODIUM BICARBONATE 100 MEQ in DEXTROSE 5% WATER 1,000 ML IV SCH (06:00)
[2017-12-12] MEDS: BLOOD SUGAR DIAGNOSTIC STRIP TEST SCH ×4 (06:03→20:15)
[2017-12-12] MEDS: INSULIN LISPRO 100 UNITS/ML SUBCUT SCH ×4 (06:03→20:15)
[2017-12-12] MEDS ORDERED: POTASSIUM CHLORIDE INJ 40 MEQ in DEXT 5% WATER 250 ML IV NR (08:00)
[2017-12-12] MEDS: PANTOPRAZOLE SODIUM 40 MG/VIAL IV SCH ×2 (10:01→20:49)
[2017-12-12 10:41] LABS: ATYPICAL LYMPHOCYTES 1; PLATELET ESTIMATE NORMAL
[2017-12-12] MEDS: DEXT 5%/0.2% NACL 1,000 ML IV SCH ×2 (11:00→20:49)
[2017-12-12] MEDS ORDERED: POTASSIUM PHOS,M-BASIC-D-BASIC 15 MMOL in DEXT 5% WATER 245 ML IV NR (11:30)
[2017-12-12] MEDS ORDERED: LACTULOSE 20G/30ML UDC PO SCH (14:00)
[2017-12-12 16:09] LABS: AMMONIA < 10 uMol/L (<32)
[2017-12-12] MEDS: CEFEPIME 1,000 MG in DEXTROSE 5% WATER 50 ML IV SCH (17:06)
[2017-12-12] MEDS: SIMETHICONE 80MG TABLET CHEW PO SCH ×2 (17:07→20:49)
[2017-12-13] VITALS (56 sets, daily range): BP systolic 83–127; BP diastolic 45–93
[2017-12-13] MEDS: MORPHINE SULFATE 4 MG/ML CPJ (NOT FOR IM USE) IV PRN ×4 (00:33→21:21)
[2017-12-13] MEDS: METRONIDAZOLE 500 MG PREMIX 100 ML IV SCH ×3 (01:35→18:20)
[2017-12-13 05:49] LABS: MEAN CORPUSCULAR HEMOGLOBIN 28.7 pg (28.0-32.0); MEAN CORPUSCULAR VOLUME 83.6 fL (80.0-94.0); MEAN PLATELET VOLUME 8.6 fl (7.4-10.4); PLATELET 149 x1000/uL (130-400); RED BLOOD CELL COUNT 2.34 mill/uL (4.7-6.1)
[2017-12-13] MEDS: BLOOD SUGAR DIAGNOSTIC STRIP TEST SCH ×4 (05:50→21:15)
[2017-12-13] MEDS: SIMETHICONE 80MG TABLET CHEW PO SCH ×4 (05:50→21:21)
[2017-12-13] MEDS: DEXT 5%/0.2% NACL 1,000 ML IV SCH (06:04)
[2017-12-13] MEDS: INSULIN LISPRO 100 UNITS/ML SUBCUT SCH ×4 (06:05→21:00)
[2017-12-13 06:14] LABS: HEMATOCRIT. 19.5 % (42.0-52.0); HEMOGLOBIN. 6.7 g/dL (14.0-18.0)
[2017-12-13 06:32] LABS: PHOSPHORUS 2.4 mg/dL (2.5-4.9)
[2017-12-13] MEDS ORDERED: POTASSIUM PHOS,M-BASIC-D-BASIC 30 MMOL in DEXT 5% WATER 500 ML IV NR (08:00)
[2017-12-13] MEDS: PANTOPRAZOLE SODIUM 40 MG/VIAL IV SCH ×2 (09:01→21:21)
[2017-12-13 09:18] LABS: PLATELET ESTIMATE NORMAL
[2017-12-13] MEDS ORDERED: DIATR MEGLU/DIATRIZOATE SOLN 30ML PO NR (13:55)
[2017-12-13] MEDS ORDERED: POTASSIUM CHLORIDE INJ 40 MEQ in DEXT 5% WATER 250 ML IV NR (14:00)
[2017-12-13] MEDS: CEFEPIME 1,000 MG in DEXTROSE 5% WATER 50 ML IV SCH (17:06)
[2017-12-14] VITALS (42 sets, daily range): BP systolic 85–136; BP diastolic 40–79
[2017-12-14] MEDS: METRONIDAZOLE 500 MG PREMIX 100 ML IV SCH ×3 (01:00→18:14)
[2017-12-14] MEDS: DEXT 5%/0.2% NACL 1,000 ML IV SCH (01:00)
[2017-12-14 05:27] LABS: HEMATOCRIT. 24.6 % (42.0-52.0); HEMOGLOBIN. 8.5 g/dL (14.0-18.0); MEAN CORPUSCULAR HEMOGLOBIN 29.2 pg (28.0-32.0); MEAN CORPUSCULAR VOLUME 84.2 fL (80.0-94.0); MEAN PLATELET VOLUME 9.1 fl (7.4-10.4); PLATELET 133 x1000/uL (130-400); RED BLOOD CELL COUNT 2.92 mill/uL (4.7-6.1); RED CELL DISTRIBUTION WIDTH 16.3 % (11.6-14.6)
[2017-12-14 05:56] LABS: PHOSPHORUS 3.5 mg/dL (2.5-4.9)
[2017-12-14] MEDS: BLOOD SUGAR DIAGNOSTIC STRIP TEST SCH ×4 (06:12→22:00)
[2017-12-14] MEDS: INSULIN LISPRO 100 UNITS/ML SUBCUT SCH ×4 (06:13→22:00)
[2017-12-14] MEDS: SIMETHICONE 80MG TABLET CHEW PO SCH ×4 (06:14→22:00)
[2017-12-14] MEDS: MORPHINE SULFATE 4 MG/ML CPJ (NOT FOR IM USE) IV PRN ×2 (06:40→10:52)
[2017-12-14] MEDS ORDERED: POTASSIUM CHLORIDE INJ 40 MEQ in DEXT 5% WATER 250 ML IV SCH ×2 (08:00→12:00)
[2017-12-14] MEDS: POTASSIUM CHLORIDE INJ 20 MEQ in DEXT 5%/0.2% NACL 1,000 ML IV SCH ×2 (08:38→21:58)
[2017-12-14] MEDS: PANTOPRAZOLE SODIUM 40 MG/VIAL IV SCH ×2 (08:48→22:00)
[2017-12-14 11:24] LABS: ATYPICAL LYMPHOCYTES 1; PLATELET ESTIMATE NORMAL
[2017-12-14] MEDS: CEFEPIME 1,000 MG in DEXTROSE 5% WATER 50 ML IV SCH (17:00)
[2017-12-15] VITALS (11 sets, daily range): BP systolic 88–113; BP diastolic 48–68
[2017-12-15] MEDS: METRONIDAZOLE 500 MG PREMIX 100 ML IV SCH ×3 (02:53→18:36)
[2017-12-15] MEDS: BLOOD SUGAR DIAGNOSTIC STRIP TEST SCH ×4 (07:09→21:52)
[2017-12-15] MEDS: POTASSIUM CHLORIDE INJ 20 MEQ in DEXT 5%/0.2% NACL 1,000 ML IV SCH (07:13)
[2017-12-15 07:23] LABS: HEMATOCRIT. 26.5 % (42.0-52.0); MEAN CORPUSCULAR HEMOGLOBIN 29.2 pg (28.0-32.0); MEAN CORPUSCULAR VOLUME 85.5 fL (80.0-94.0); MEAN PLATELET VOLUME 9.1 fl (7.4-10.4); PLATELET 125 x1000/uL (130-400); RED CELL DISTRIBUTION WIDTH 16.4 % (11.6-14.6)
[2017-12-15 07:59] LABS: PHOSPHORUS 3.1 mg/dL (2.5-4.9)
[2017-12-15] MEDS: INSULIN LISPRO 100 UNITS/ML SUBCUT SCH ×4 (08:00→22:02)
[2017-12-15] MEDS ORDERED: ALBUMIN HUMAN 25GM/100ML (25%) IV NR (09:30)
[2017-12-15] MEDS: SIMETHICONE 80MG TABLET CHEW PO SCH ×4 (09:37→21:52)
[2017-12-15] MEDS: PANTOPRAZOLE SODIUM 40 MG/VIAL IV SCH ×2 (09:37→21:51)
[2017-12-15] MEDS: POTASSIUM CHLORIDE 20MEQ TABLET SR PO SCH (09:45)
[2017-12-15] MEDS: MIDODRINE HCL 2.5MG TABLET PO SCH ×3 (09:46→17:31)
[2017-12-15 11:23] LABS: NUCLEATED RED BLOOD CELLS 2 /100 WBC; PLATELET ESTIMATE SLIGHTLY DECREASED
[2017-12-15] MEDS: CEFEPIME 1,000 MG in DEXTROSE 5% WATER 50 ML IV SCH (17:31)
[2017-12-16] VITALS (13 sets, daily range): BP systolic 89–109; BP diastolic 49–65
[2017-12-16] MEDS: METRONIDAZOLE 500 MG PREMIX 100 ML IV SCH ×2 (02:43→10:21)
[2017-12-16] MEDS: POTASSIUM CHLORIDE INJ 20 MEQ in DEXT 5%/0.2% NACL 1,000 ML IV SCH ×2 (02:44→18:23)
[2017-12-16 07:15] LABS: HEMATOCRIT. 26.5 % (42.0-52.0); HEMOGLOBIN. 8.9 g/dL (14.0-18.0); MEAN CORPUSCULAR HEMOGLOBIN 29.5 pg (28.0-32.0); MEAN CORPUSCULAR VOLUME 87.6 fL (80.0-94.0); RED BLOOD CELL COUNT 3.02 mill/uL (4.7-6.1); RED CELL DISTRIBUTION WIDTH 16.6 % (11.6-14.6)
[2017-12-16] MEDS: BLOOD SUGAR DIAGNOSTIC STRIP TEST SCH ×4 (07:50→20:47)
[2017-12-16 08:15] LABS: PLATELET 115 x1000/uL (130-400); PLATELET ESTIMATE DECREASED
[2017-12-16 08:16] LABS: MEAN PLATELET VOLUME 9.6 fl (7.4-10.4)
[2017-12-16 08:29] LABS: PHOSPHORUS 2.9 mg/dL (2.5-4.9)
[2017-12-16] MEDS: SIMETHICONE 80MG TABLET CHEW PO SCH ×4 (08:58→20:47)
[2017-12-16] MEDS: POTASSIUM CHLORIDE 20MEQ TABLET SR PO SCH (08:58)
[2017-12-16] MEDS: PANTOPRAZOLE SODIUM 40 MG/VIAL IV SCH ×2 (08:59→20:47)
[2017-12-16] MEDS: MIDODRINE HCL 2.5MG TABLET PO SCH ×2 (08:59→17:18)
[2017-12-16] MEDS: INSULIN LISPRO 100 UNITS/ML SUBCUT SCH ×4 (09:01→20:45)
[2017-12-16] MEDS: PIPERACILLIN/TAZ 3.375G PREMIX 50 ML IV SCH (17:17)
[2017-12-16] MEDS ORDERED: VANCOMYCIN 1500MG in DEXTROSE 5% WATER 250ML IV NR (17:30)
[2017-12-17] VITALS (75 sets, daily range): BP systolic 65–175; BP diastolic 20–91
[2017-12-17] MEDS: PIPERACILLIN/TAZ 3.375G PREMIX 50 ML IV SCH ×2 (02:11→12:58)
[2017-12-17] MEDS: POTASSIUM CHLORIDE INJ 20 MEQ in DEXT 5%/0.2% NACL 1,000 ML IV SCH (03:50)
[2017-12-17] MEDS: IPRATROPIUM/ALBUTEROL 0.5-3(2.5)MG/3ML NEB HHN PRN (03:55)
[2017-12-17 06:44] LABS: HEMATOCRIT. 24.8 % (42.0-52.0); HEMOGLOBIN. 8.3 g/dL (14.0-18.0); MEAN CORPUSCULAR HEMOGLOBIN 29.3 pg (28.0-32.0); MEAN CORPUSCULAR VOLUME 87.9 fL (80.0-94.0); MEAN PLATELET VOLUME 9.3 fl (7.4-10.4); PLATELET 104 x1000/uL (130-400); RED BLOOD CELL COUNT 2.82 mill/uL (4.7-6.1); RED CELL DISTRIBUTION WIDTH 16.7 % (11.6-14.6)
[2017-12-17 07:00] LABS: CHLORIDE 109 mEq/L (98-107)
[2017-12-17 07:16] LABS: PHOSPHORUS 4.1 mg/dL (2.5-4.9)
[2017-12-17] MEDS: BLOOD SUGAR DIAGNOSTIC STRIP TEST SCH ×4 (07:44→21:20)
[2017-12-17] MEDS: INSULIN LISPRO 100 UNITS/ML SUBCUT SCH ×4 (08:00→21:00)
[2017-12-17] MEDS ORDERED: ALBUMIN HUMAN 25GM/100ML (25%) IV NR (08:45)
[2017-12-17] MEDS ORDERED: NOREPINEPHRINE 4 MG in DEXT 5% WATER 246 ML IV PRN (09:00)
[2017-12-17] MEDS: MIDODRINE HCL 2.5MG TABLET PO SCH ×3 (09:00→16:57)
[2017-12-17] MEDS: POTASSIUM CHLORIDE 20MEQ TABLET SR PO SCH (09:00)
[2017-12-17 09:30] LABS: BG BASE EXCESS -14.9 mmol/L (-2.0-2.0); BG CARBOXYHEMOGLOBIN 1.2 % (0.5-1.5); BG DEOXYHEMOGLOBIN 6.4 % (0.0-5.0); BG FRACTION INSPIRED OXYGEN 100; BG HCO3 ACT 13.9 mmol/L (22.0-26.0); BG METHEMOGLOBIN 0.3 % (0.0-1.5); BG OXYGEN SATURATION 93.5 % (92.0-98.5); BG OXYHEMOGLOBIN 92.1 % (94.0-97.0); BG PCO2 46.9 mmHg (35.0-45.0); BG PH 7.089 (7.350-7.450); BG PO2 91.1 mmHg (75.0-100.0); BG SAMPLE SITE LEFT RADIAL; BG TIDAL VOLUME(mL) 550 mL; BG TOTAL HEMOGLOBIN 7.7 g/dL (12.0-18.0); BG VENT MODE VENT - A/C; BG VENT RATE 16 set
[2017-12-17] MEDS ORDERED: SODIUM BICARBONATE 8.4% 1 MEQ/ML 50ML SYR IV NR (09:45)
[2017-12-17 10:24] LABS: PLATELET ESTIMATE DECREASED
[2017-12-17] MEDS ORDERED: FENTANYL CITRATE/PF 500 MCG in SODIUM CHLORIDE 0.9% 40 ML IV PRN (10:45)
[2017-12-17] MEDS ORDERED: PHENYLEPHRINE 20 MG in DEXT 5% WATER 248 ML IV PRN (10:45)
[2017-12-17 11:19] LABS: INR 1.4; PARTIAL THROMBOPLASTIN TIME 32.7 sec (23.4-31.0); PROTHROMBIN TIME 13.6 sec (9.1-11.1)
[2017-12-17 11:31] LABS: CREATINE KINASE MB FRACTION 2.6 ng/mL (0.5-3.6)
[2017-12-17] MEDS: AMIODARONE HCL 900 MG in DEXT 5% WATER 482 ML IV SCH (11:34)
[2017-12-17] MEDS: SODIUM BICARBONATE 150 MEQ in DEXTROSE 5% WATER 1,000 ML IV SCH (11:35)
[2017-12-17] MEDS: PHENYLEPHRINE 40 MG in DEXT 5% WATER 246 ML IV PRN ×2 (11:36→22:27)
[2017-12-17] MEDS ORDERED: SODIUM BICARBONATE 4% (2.4MEQ) 5ML VIAL IV ONE (11:36)
[2017-12-17] MEDS ORDERED: LIDOCAINE HCL 1% 10 MG/ML 10ML VIAL ONE (11:36)
[2017-12-17] MEDS: PANTOPRAZOLE SODIUM 40 MG/VIAL IV SCH ×2 (13:07→21:22)
[2017-12-17 13:41] LABS: BG BASE EXCESS -5.1 mmol/L (-2.0-2.0); BG CARBOXYHEMOGLOBIN 0.3 % (0.5-1.5); BG DEOXYHEMOGLOBIN 0.4 % (0.0-5.0); BG FRACTION INSPIRED OXYGEN 100; BG HCO3 ACT 19.4 mmol/L (22.0-26.0); BG METHEMOGLOBIN 0.3 % (0.0-1.5); BG OXYGEN SATURATION 99.6 % (92.0-98.5); BG PCO2 33.4 mmHg (35.0-45.0); BG PH 7.383 (7.350-7.450); BG PO2 380.2 mmHg (75.0-100.0); BG SAMPLE SITE RIGHT RADIAL; BG TIDAL VOLUME(mL) 550 mL; BG TOTAL HEMOGLOBIN 7.8 g/dL (12.0-18.0); BG VENT MODE VENT - A/C; BG VENT RATE 20 set
[2017-12-17] MEDS ORDERED: DEXTROSE 50% WATER 50ML SYRINGE IV ONE (14:20)
[2017-12-17] MEDS ORDERED: EPINEPHRINE 0.1MG/ML (1:10,000) 10ML SYR ONE (14:20)
[2017-12-17] MEDS ORDERED: CALCIUM CHLORIDE 1GM/10ML SYR IV ONE (14:20)
[2017-12-17] MEDS ORDERED: MAGNESIUM SULFATE 4G IN WATER 100ML PREMIX IV ONE (14:20)
[2017-12-17] MEDS: METRONIDAZOLE 500 MG PREMIX 100 ML IV SCH (16:51)
[2017-12-17] MEDS: MEROPENEM 1,000 MG in SODIUM CHLORIDE 0.9% 100 ML IV SCH (16:51)
[2017-12-17] MEDS ORDERED: VANCOMYCIN 1 G PREMIX 200 ML IV SCH (18:00)
[2017-12-18] VITALS (99 sets, daily range): BP systolic 72–151; BP diastolic 45–91
[2017-12-18] MEDS: METRONIDAZOLE 500 MG PREMIX 100 ML IV SCH ×3 (01:48→18:45)
[2017-12-18] MEDS: MEROPENEM 1,000 MG in SODIUM CHLORIDE 0.9% 100 ML IV SCH ×2 (03:22→16:20)
[2017-12-18] MEDS: PHENYLEPHRINE 40 MG in DEXT 5% WATER 246 ML IV PRN ×2 (03:47→10:04)
[2017-12-18] MEDS: AMIODARONE HCL 900 MG in DEXT 5% WATER 482 ML IV SCH ×2 (06:00→07:36)
[2017-12-18 06:03] LABS: MEAN CORPUSCULAR VOLUME 86.1 fL (80.0-94.0); MEAN PLATELET VOLUME 9.5 fl (7.4-10.4); PLATELET 133 x1000/uL (130-400); RED CELL DISTRIBUTION WIDTH 16.4 % (11.6-14.6)
[2017-12-18 06:11] LABS: HEMATOCRIT. 20.7 % (42.0-52.0)
[2017-12-18 06:13] LABS: CHLORIDE 107 mEq/L (98-107)
[2017-12-18 06:21] LABS: PHOSPHORUS 3.6 mg/dL (2.5-4.9)
[2017-12-18 06:24] LABS: CREATINE KINASE 73 IU/L (39-308)
[2017-12-18 06:26] LABS: CREATINE KINASE MB FRACTION 1.3 ng/mL (0.5-3.6)
[2017-12-18] MEDS: MIDAZOLAM HCL 100 MG in DEXT 5% WATER 80 ML IV PRN ×3 (06:33)
[2017-12-18] MEDS: BLOOD SUGAR DIAGNOSTIC STRIP TEST SCH ×4 (06:42→20:50)
[2017-12-18] MEDS: INSULIN LISPRO 100 UNITS/ML SUBCUT SCH ×4 (06:45→20:51)
[2017-12-18 08:25] LABS: BG BASE EXCESS -1.2 mmol/L (-2.0-2.0); BG CARBOXYHEMOGLOBIN 0.9 % (0.5-1.5); BG DEOXYHEMOGLOBIN 1.5 % (0.0-5.0); BG FRACTION INSPIRED OXYGEN 40; BG HCO3 ACT 21.3 mmol/L (22.0-26.0); BG METHEMOGLOBIN 0.4 % (0.0-1.5); BG OXYGEN SATURATION 98.5 % (92.0-98.5); BG OXYHEMOGLOBIN 97.2 % (94.0-97.0); BG PCO2 26.7 mmHg (35.0-45.0); BG PO2 118.6 mmHg (75.0-100.0); BG SAMPLE SITE RIGHT BRACHIAL; BG TIDAL VOLUME(mL) 550 mL; BG VENT MODE VENT - A/C; BG VENT RATE 20 set
[2017-12-18] MEDS ORDERED: KCL 20MEQ/100ML PREMIX 100 ML IV NR ×2 (09:00→11:00)
[2017-12-18] MEDS: PANTOPRAZOLE SODIUM 40 MG/VIAL IV SCH ×2 (10:26→22:01)
[2017-12-18] MEDS: MIDODRINE HCL 2.5MG TABLET PO SCH ×3 (10:27→18:45)
[2017-12-18 10:50] LABS: PLATELET ESTIMATE NORMAL
[2017-12-18] MEDS: POTASSIUM CHLORIDE 20MEQ/PACKET NG SCH (13:02)
[2017-12-18 14:35] LABS: INR 1.4; PARTIAL THROMBOPLASTIN TIME 35.5 sec (23.4-31.0); PROTHROMBIN TIME 13.6 sec (9.1-11.1)
[2017-12-18] MEDS ORDERED: AMIODARONE HCL 900 MG in DEXT 5% WATER 482 ML IV SCH (15:05)
[2017-12-18] MEDS: THIAMINE HCL 100MG TABLET PO SCH (18:45)
[2017-12-18] MEDS: SUCRALFATE 1 G/10 ML UDC PO SCH (22:01)
[2017-12-19] VITALS (86 sets, daily range): BP systolic 80–143; BP diastolic 48–113
[2017-12-19] MEDS: METRONIDAZOLE 500 MG PREMIX 100 ML IV SCH ×3 (02:06→17:05)
[2017-12-19] MEDS: SODIUM BICARBONATE 150 MEQ in DEXTROSE 5% WATER 1,000 ML IV SCH (02:24)
[2017-12-19] MEDS: MEROPENEM 1,000 MG in SODIUM CHLORIDE 0.9% 100 ML IV SCH ×2 (04:12→16:10)
[2017-12-19 04:53] LABS: BASOPHILS % 0.2 % (0.0-2.0); EOSINOPHILS % 0.2 % (0.0-5.0); HEMATOCRIT. 29.3 % (42.0-52.0); HEMOGLOBIN. 9.8 g/dL (14.0-18.0); LYMPHOCYTES % 7.5 % (20.0-50.0); MEAN CORPUSCULAR HEMOGLOBIN 29.3 pg (28.0-32.0); MEAN CORPUSCULAR VOLUME 87.8 fL (80.0-94.0); MONOCYTES % 8.9 % (2.0-8.0); NEUTROPHILS % 83.2 % (40.0-76.0); PLATELET 125 x1000/uL (130-400); RED BLOOD CELL COUNT 3.33 mill/uL (4.7-6.1); RED CELL DISTRIBUTION WIDTH 16.4 % (11.6-14.6)
[2017-12-19 05:01] LABS: CHLORIDE 104 mEq/L (98-107)
[2017-12-19] MEDS: PHENYLEPHRINE 40 MG in DEXT 5% WATER 246 ML IV PRN ×2 (05:11→17:06)
[2017-12-19] MEDS: BLOOD SUGAR DIAGNOSTIC STRIP TEST SCH ×4 (06:21→21:40)
[2017-12-19] MEDS: INSULIN LISPRO 100 UNITS/ML SUBCUT SCH ×4 (06:22→21:00)
[2017-12-19] MEDS: SUCRALFATE 1 G/10 ML UDC PO SCH ×4 (06:22→21:09)
[2017-12-19 08:15] LABS: BG BASE EXCESS 0.9 mmol/L (-2.0-2.0); BG CARBOXYHEMOGLOBIN 0.3 % (0.5-1.5); BG DEOXYHEMOGLOBIN 1.4 % (0.0-5.0); BG FRACTION INSPIRED OXYGEN 40; BG HCO3 ACT 23.5 mmol/L (22.0-26.0); BG METHEMOGLOBIN 0.3 % (0.0-1.5); BG OXYGEN SATURATION 98.6 % (92.0-98.5); BG PCO2 29.4 mmHg (35.0-45.0); BG PH 7.521 (7.350-7.450); BG PO2 131.9 mmHg (75.0-100.0); BG SAMPLE SITE RIGHT RADIAL; BG TIDAL VOLUME(mL) 550 mL; BG VENT MODE VENT - A/C; BG VENT RATE 20 set
[2017-12-19] MEDS ORDERED: VANCOMYCIN 1 G PREMIX 200 ML IV NR (09:00)
[2017-12-19] MEDS: POTASSIUM CHLORIDE 20MEQ/PACKET NG SCH (09:08)
[2017-12-19] MEDS: MAGNESIUM/ALUMINUM HYDROXIDE/SIMETHICONE 30ML UDC PO PRN (09:08)
[2017-12-19] MEDS: MIDODRINE HCL 2.5MG TABLET PO SCH ×3 (09:08→16:10)
[2017-12-19] MEDS: PANTOPRAZOLE SODIUM 40 MG/VIAL IV SCH ×2 (09:08→21:10)
[2017-12-19] MEDS: THIAMINE HCL 100MG TABLET PO SCH ×2 (09:08→16:11)
[2017-12-19] MEDS: AMIODARONE HCL 200 MG TABLET PO SCH ×2 (11:52→21:09)
[2017-12-19 12:20] LABS: BG BASE EXCESS -0.6 mmol/L (-2.0-2.0); BG CARBOXYHEMOGLOBIN 0.3 % (0.5-1.5); BG DEOXYHEMOGLOBIN 1.9 % (0.0-5.0); BG FRACTION INSPIRED OXYGEN 35; BG HCO3 ACT 21.7 mmol/L (22.0-26.0); BG OXYGEN SATURATION 98.1 % (92.0-98.5); BG OXYHEMOGLOBIN 97.8 % (94.0-97.0); BG PCO2 28.5 mmHg (35.0-45.0); BG PO2 113.3 mmHg (75.0-100.0); BG SAMPLE SITE RIGHT RADIAL; BG TIDAL VOLUME(mL) 550 mL; BG TOTAL HEMOGLOBIN 10.8 g/dL (12.0-18.0); BG VENT MODE VENT - A/C; BG VENT RATE 14 set
[2017-12-20] VITALS (88 sets, daily range): BP systolic 89–144; BP diastolic 54–80
[2017-12-20] MEDS: PHENYLEPHRINE 40 MG in DEXT 5% WATER 246 ML IV PRN ×4 (00:06→21:33)
[2017-12-20] MEDS: METRONIDAZOLE 500 MG PREMIX 100 ML IV SCH ×3 (03:34→18:14)
[2017-12-20] MEDS: MEROPENEM 1,000 MG in SODIUM CHLORIDE 0.9% 100 ML IV SCH ×2 (05:14→16:57)
[2017-12-20 05:38] LABS: HEMATOCRIT. 26.1 % (42.0-52.0); HEMOGLOBIN. 8.7 g/dL (14.0-18.0); MEAN CORPUSCULAR HEMOGLOBIN 28.8 pg (28.0-32.0); MEAN CORPUSCULAR VOLUME 86.3 fL (80.0-94.0); MEAN PLATELET VOLUME 10.3 fl (7.4-10.4); PLATELET 136 x1000/uL (130-400); RED BLOOD CELL COUNT 3.03 mill/uL (4.7-6.1); RED CELL DISTRIBUTION WIDTH 16.4 % (11.6-14.6)
[2017-12-20 05:49] LABS: CHLORIDE 106 mEq/L (98-107)
[2017-12-20 06:09] LABS: PHOSPHORUS 3.4 mg/dL (2.5-4.9)
[2017-12-20] MEDS: INSULIN LISPRO 100 UNITS/ML SUBCUT SCH ×4 (06:17→21:46)
[2017-12-20] MEDS: BLOOD SUGAR DIAGNOSTIC STRIP TEST SCH ×4 (06:18→21:00)
[2017-12-20] MEDS: SODIUM BICARBONATE 150 MEQ in DEXTROSE 5% WATER 1,000 ML IV SCH (06:51)
[2017-12-20] MEDS: IPRATROPIUM/ALBUTEROL 0.5-3(2.5)MG/3ML NEB HHN PRN ×2 (08:04→15:20)
[2017-12-20] MEDS: SUCRALFATE 1 G/10 ML UDC PO SCH ×4 (08:12→21:11)
[2017-12-20] MEDS: POTASSIUM CHLORIDE 20MEQ/PACKET NG SCH (08:13)
[2017-12-20] MEDS ORDERED: POTASSIUM CHLORIDE INJ 40 MEQ in DEXT 5% WATER 250 ML IV SCH (10:00)
[2017-12-20 10:07] LABS: BG BASE EXCESS -2.7 mmol/L (-2.0-2.0); BG CARBOXYHEMOGLOBIN 0.3 % (0.5-1.5); BG DEOXYHEMOGLOBIN 1.7 % (0.0-5.0); BG FRACTION INSPIRED OXYGEN 35; BG HCO3 ACT 19.7 mmol/L (22.0-26.0); BG METHEMOGLOBIN 0.5 % (0.0-1.5); BG OXYGEN SATURATION 98.3 % (92.0-98.5); BG OXYHEMOGLOBIN 97.5 % (94.0-97.0); BG PH 7.498 (7.350-7.450); BG PO2 118.5 mmHg (75.0-100.0); BG SAMPLE SITE RIGHT BRACHIAL; BG TIDAL VOLUME(mL) 550 mL; BG TOTAL HEMOGLOBIN 9.1 g/dL (12.0-18.0); BG VENT MODE VENT - A/C; BG VENT RATE 14 set
[2017-12-20] MEDS: AMIODARONE HCL 200 MG TABLET PO SCH ×2 (10:09→21:11)
[2017-12-20] MEDS: MIDODRINE HCL 2.5MG TABLET PO SCH ×3 (10:12→17:10)
[2017-12-20] MEDS: THIAMINE HCL 100MG TABLET PO SCH ×2 (10:12→17:11)
[2017-12-20] MEDS: MAGNESIUM/ALUMINUM HYDROXIDE/SIMETHICONE 30ML UDC PO PRN (10:12)
[2017-12-20 10:23] LABS: PLATELET ESTIMATE NORMAL
[2017-12-20] MEDS: PANTOPRAZOLE SODIUM 40 MG/VIAL IV SCH ×2 (12:31→13:05)
[2017-12-20] MEDS ORDERED: VANCOMYCIN 1 G PREMIX 200 ML IV NR (16:00)
[2017-12-21] VITALS (87 sets, daily range): BP systolic 80–132; BP diastolic 49–74
[2017-12-21] MEDS: METRONIDAZOLE 500 MG PREMIX 100 ML IV SCH ×3 (01:29→17:53)
[2017-12-21] MEDS: MIDAZOLAM HCL 100 MG in DEXT 5% WATER 80 ML IV PRN (01:29)
[2017-12-21] MEDS: MEROPENEM 1,000 MG in SODIUM CHLORIDE 0.9% 100 ML IV SCH ×2 (03:24→17:46)
[2017-12-21] MEDS: PHENYLEPHRINE 40 MG in DEXT 5% WATER 246 ML IV PRN ×3 (06:07→20:59)
[2017-12-21] MEDS: SUCRALFATE 1 G/10 ML UDC PO SCH ×4 (06:08→20:30)
[2017-12-21] MEDS: BLOOD SUGAR DIAGNOSTIC STRIP TEST SCH ×4 (06:08→20:26)
[2017-12-21] MEDS: INSULIN LISPRO 100 UNITS/ML SUBCUT SCH ×4 (06:09→20:26)
[2017-12-21 08:08] LABS: BG BASE EXCESS -4.7 mmol/L (-2.0-2.0); BG CARBOXYHEMOGLOBIN 0.3 % (0.5-1.5); BG DEOXYHEMOGLOBIN 2.3 % (0.0-5.0); BG HCO3 ACT 18.1 mmol/L (22.0-26.0); BG METHEMOGLOBIN 0.3 % (0.0-1.5); BG OXYGEN SATURATION 97.7 % (92.0-98.5); BG OXYHEMOGLOBIN 97.1 % (94.0-97.0); BG PCO2 26.3 mmHg (35.0-45.0); BG PH 7.456 (7.350-7.450); BG PO2 102.5 mmHg (75.0-100.0); BG SAMPLE SITE RIGHT RADIAL; BG TIDAL VOLUME(mL) 550 mL; BG TOTAL HEMOGLOBIN 10.1 g/dL (12.0-18.0); BG VENT MODE VENT - A/C; BG VENT RATE 14 set
[2017-12-21 08:18] LABS: HEMATOCRIT. 29.9 % (42.0-52.0); HEMOGLOBIN. 9.6 g/dL (14.0-18.0); MEAN CORPUSCULAR HEMOGLOBIN 28.7 pg (28.0-32.0); MEAN CORPUSCULAR VOLUME 89.5 fL (80.0-94.0); MEAN PLATELET VOLUME 10.7 fl (7.4-10.4); PLATELET 160 x1000/uL (130-400); RED BLOOD CELL COUNT 3.34 mill/uL (4.7-6.1); RED CELL DISTRIBUTION WIDTH 16.8 % (11.6-14.6)
[2017-12-21 08:24] LABS: CHLORIDE 106 mEq/L (98-107)
[2017-12-21 08:29] LABS: PHOSPHORUS 3.5 mg/dL (2.5-4.9)
[2017-12-21 10:07] LABS: PLATELET ESTIMATE NORMAL
[2017-12-21] MEDS: PANTOPRAZOLE SODIUM 40 MG/VIAL IV SCH ×2 (10:15→20:25)
[2017-12-21] MEDS: MAGNESIUM/ALUMINUM HYDROXIDE/SIMETHICONE 30ML UDC PO PRN (10:15)
[2017-12-21] MEDS: MIDODRINE HCL 2.5MG TABLET PO SCH ×3 (10:16→17:48)
[2017-12-21] MEDS: POTASSIUM CHLORIDE 20MEQ/PACKET NG SCH (10:17)
[2017-12-21] MEDS: LACTOBACILLUS GG CAPSULE PO SCH (10:17)
[2017-12-21] MEDS: AMIODARONE HCL 200 MG TABLET PO SCH ×2 (10:17→20:26)
[2017-12-21] MEDS: THIAMINE HCL 100MG TABLET PO SCH ×2 (10:24→17:50)
[2017-12-21] MEDS: METOCLOPRAMIDE HCL 10MG/2ML VIAL IV SCH ×2 (10:30→21:02)
[2017-12-21] MEDS ORDERED: FENTANYL CITRATE/PF 500 MCG in SODIUM CHLORIDE 0.9% 40 ML IV PRN (12:00)
[2017-12-21] MEDS ORDERED: POTASSIUM CHLORIDE 20MEQ TABLET SR PO SCH (15:30)
[2017-12-21] MEDS: VANCOMYCIN HCL 1000 MG/20 ML ORAL PO SCH ×2 (17:53→23:02)
[2017-12-22] VITALS (84 sets, daily range): BP systolic 94–129; BP diastolic 49–73
[2017-12-22] MEDS: METRONIDAZOLE 500 MG PREMIX 100 ML IV SCH ×3 (01:16→17:04)
[2017-12-22] MEDS: MEROPENEM 1,000 MG in SODIUM CHLORIDE 0.9% 100 ML IV SCH ×2 (03:07→15:57)
[2017-12-22] MEDS: SUCRALFATE 1 G/10 ML UDC PO SCH ×4 (05:37→20:22)
[2017-12-22] MEDS: VANCOMYCIN HCL 1000 MG/20 ML ORAL PO SCH ×4 (05:37→23:11)
[2017-12-22] MEDS: METOCLOPRAMIDE HCL 10MG/2ML VIAL IV SCH ×2 (05:37→13:23)
[2017-12-22] MEDS: BLOOD SUGAR DIAGNOSTIC STRIP TEST SCH ×4 (06:00→20:22)
[2017-12-22] MEDS: INSULIN LISPRO 100 UNITS/ML SUBCUT SCH ×4 (06:00→20:22)
[2017-12-22 06:12] LABS: BASOPHILS % 0.3 % (0.0-2.0); EOSINOPHILS % 0.2 % (0.0-5.0); HEMATOCRIT. 29.8 % (42.0-52.0); HEMOGLOBIN. 9.7 g/dL (14.0-18.0); MEAN CORPUSCULAR VOLUME 88.8 fL (80.0-94.0); MEAN PLATELET VOLUME 10.6 fl (7.4-10.4); NEUTROPHILS % 84.5 % (40.0-76.0); PLATELET 194 x1000/uL (130-400); RED BLOOD CELL COUNT 3.36 mill/uL (4.7-6.1); RED CELL DISTRIBUTION WIDTH 16.9 % (11.6-14.6)
[2017-12-22 06:13] LABS: CHLORIDE 108 mEq/L (98-107)
[2017-12-22 06:24] LABS: PHOSPHORUS 4.4 mg/dL (2.5-4.9)
[2017-12-22] MEDS: POTASSIUM CHLORIDE 20MEQ/PACKET NG SCH (08:34)
[2017-12-22] MEDS: PANTOPRAZOLE SODIUM 40 MG/VIAL IV SCH ×2 (08:34→20:22)
[2017-12-22] MEDS: LACTOBACILLUS GG CAPSULE PO SCH (08:35)
[2017-12-22] MEDS: MIDODRINE HCL 2.5MG TABLET PO SCH ×2 (08:35→12:22)
[2017-12-22] MEDS: THIAMINE HCL 100MG TABLET PO SCH ×2 (08:35→16:04)
[2017-12-22] MEDS: AMIODARONE HCL 200 MG TABLET PO SCH ×2 (08:35→20:22)
[2017-12-22 08:37] LABS: BG BASE EXCESS -6.9 mmol/L (-2.0-2.0); BG CARBOXYHEMOGLOBIN 0.3 % (0.5-1.5); BG DEOXYHEMOGLOBIN 1.8 % (0.0-5.0); BG FRACTION INSPIRED OXYGEN 35; BG METHEMOGLOBIN 0.3 % (0.0-1.5); BG OXYGEN SATURATION 98.2 % (92.0-98.5); BG OXYHEMOGLOBIN 97.6 % (94.0-97.0); BG PCO2 24.1 mmHg (35.0-45.0); BG PH 7.439 (7.350-7.450); BG PO2 117.5 mmHg (75.0-100.0); BG SAMPLE SITE RIGHT RADIAL; BG TIDAL VOLUME(mL) 500 mL; BG TOTAL HEMOGLOBIN 9.7 g/dL (12.0-18.0); BG VENT MODE VENT - A/C; BG VENT RATE 14 set
[2017-12-22] MEDS: PHENYLEPHRINE 40 MG in DEXT 5% WATER 246 ML IV PRN ×2 (08:46→23:11)
[2017-12-22] MEDS: FENTANYL CITRATE/PF 500 MCG in SODIUM CHLORIDE 0.9% 40 ML IV PRN (13:23)
[2017-12-22] MEDS ORDERED: POTASSIUM CHLORIDE 20MEQ TABLET SR PO NR (15:15)
[2017-12-22] MEDS: MIDODRINE HCL 10 MG TABLET PO SCH (16:04)
[2017-12-23] VITALS (94 sets, daily range): BP systolic 94–171; BP diastolic 50–120
[2017-12-23] MEDS: METRONIDAZOLE 500 MG PREMIX 100 ML IV SCH ×3 (01:00→16:36)
[2017-12-23] MEDS: MEROPENEM 1,000 MG in SODIUM CHLORIDE 0.9% 100 ML IV SCH (03:15)
[2017-12-23] MEDS: FENTANYL CITRATE/PF 500 MCG in SODIUM CHLORIDE 0.9% 40 ML IV PRN ×3 (03:16→17:22)
[2017-12-23] MEDS: IPRATROPIUM/ALBUTEROL 0.5-3(2.5)MG/3ML NEB HHN PRN ×2 (04:10→08:17)
[2017-12-23] MEDS: INSULIN LISPRO 100 UNITS/ML SUBCUT SCH ×4 (05:32→21:48)
[2017-12-23] MEDS: SUCRALFATE 1 G/10 ML UDC PO SCH ×4 (05:32→21:41)
[2017-12-23] MEDS: VANCOMYCIN HCL 1000 MG/20 ML ORAL PO SCH ×4 (05:32→23:33)
[2017-12-23] MEDS: BLOOD SUGAR DIAGNOSTIC STRIP TEST SCH ×4 (05:32→21:48)
[2017-12-23 06:28] LABS: HEMOGLOBIN. 7.6 g/dL (14.0-18.0); MEAN CORPUSCULAR HEMOGLOBIN 28.9 pg (28.0-32.0); MEAN CORPUSCULAR VOLUME 87.9 fL (80.0-94.0); PLATELET 199 x1000/uL (130-400); RED BLOOD CELL COUNT 2.62 mill/uL (4.7-6.1); RED CELL DISTRIBUTION WIDTH 16.9 % (11.6-14.6)
[2017-12-23 06:48] LABS: PHOSPHORUS 4.6 mg/dL (2.5-4.9)
[2017-12-23 07:43] LABS: PLATELET ESTIMATE NORMAL
[2017-12-23] MEDS ORDERED: ALBUMIN HUMAN 25GM/100ML (25%) IV SCH (08:00)
[2017-12-23 08:25] LABS: BG BASE EXCESS -7.4 mmol/L (-2.0-2.0); BG CARBOXYHEMOGLOBIN 0.7 % (0.5-1.5); BG DEOXYHEMOGLOBIN 2.3 % (0.0-5.0); BG HCO3 ACT 16.1 mmol/L (22.0-26.0); BG METHEMOGLOBIN 0.3 % (0.0-1.5); BG OXYGEN SATURATION 97.7 % (92.0-98.5); BG OXYHEMOGLOBIN 96.7 % (94.0-97.0); BG PCO2 25.6 mmHg (35.0-45.0); BG PH 7.417 (7.350-7.450); BG PO2 100.1 mmHg (75.0-100.0); BG SAMPLE SITE RIGHT RADIAL; BG TIDAL VOLUME(mL) 500 mL; BG TOTAL HEMOGLOBIN 8.1 g/dL (12.0-18.0); BG VENT MODE VENT - A/C; BG VENT RATE 14 set
[2017-12-23] MEDS: PANTOPRAZOLE SODIUM 40 MG/VIAL IV SCH ×2 (09:22→21:41)
[2017-12-23] MEDS: THIAMINE HCL 100MG TABLET PO SCH ×2 (09:23→16:37)
[2017-12-23] MEDS: MIDODRINE HCL 10 MG TABLET PO SCH ×3 (09:23→16:36)
[2017-12-23] MEDS: POTASSIUM CHLORIDE 20MEQ/PACKET NG SCH (09:23)
[2017-12-23] MEDS: SODIUM CHLORIDE 0.45% 1,000 ML IV SCH ×2 (09:23→23:35)
[2017-12-23] MEDS: LACTOBACILLUS GG CAPSULE PO SCH (09:23)
[2017-12-23] MEDS: AMIODARONE HCL 200 MG TABLET PO SCH ×2 (09:23→21:41)
[2017-12-24] VITALS (88 sets, daily range): BP systolic 100–159; BP diastolic 49–104
[2017-12-24] MEDS: FENTANYL CITRATE/PF 500 MCG in SODIUM CHLORIDE 0.9% 40 ML IV PRN ×5 (02:17→23:14)
[2017-12-24] MEDS: METRONIDAZOLE 500 MG PREMIX 100 ML IV SCH ×3 (02:20→17:18)
[2017-12-24] MEDS ORDERED: MEROPENEM 1,000 MG in SODIUM CHLORIDE 0.9% 100 ML IV SCH (04:00)
[2017-12-24 05:40] LABS: BASOPHILS % 0.2 % (0.0-2.0); EOSINOPHILS % 0.2 % (0.0-5.0); HEMATOCRIT. 23.5 % (42.0-52.0); HEMOGLOBIN. 7.7 g/dL (14.0-18.0); LYMPHOCYTES % 10.3 % (20.0-50.0); MEAN CORPUSCULAR VOLUME 88.9 fL (80.0-94.0); MEAN PLATELET VOLUME 9.5 fl (7.4-10.4); NEUTROPHILS % 82.3 % (40.0-76.0); PLATELET 227 x1000/uL (130-400); RED BLOOD CELL COUNT 2.64 mill/uL (4.7-6.1); RED CELL DISTRIBUTION WIDTH 17.7 % (11.6-14.6)
[2017-12-24] MEDS: BLOOD SUGAR DIAGNOSTIC STRIP TEST SCH ×4 (06:07→21:45)
[2017-12-24] MEDS: INSULIN LISPRO 100 UNITS/ML SUBCUT SCH ×4 (06:08→21:45)
[2017-12-24] MEDS: VANCOMYCIN HCL 1000 MG/20 ML ORAL PO SCH ×4 (06:10→23:17)
[2017-12-24] MEDS: SUCRALFATE 1 G/10 ML UDC PO SCH ×4 (06:10→21:57)
[2017-12-24 06:12] LABS: PHOSPHORUS 4.8 mg/dL (2.5-4.9)
[2017-12-24] MEDS: POTASSIUM CHLORIDE 20MEQ/PACKET NG SCH (08:14)
[2017-12-24] MEDS: MIDODRINE HCL 10 MG TABLET PO SCH ×3 (08:14→16:23)
[2017-12-24] MEDS: PANTOPRAZOLE SODIUM 40 MG/VIAL IV SCH ×2 (08:14→21:23)
[2017-12-24] MEDS: THIAMINE HCL 100MG TABLET PO SCH ×2 (08:14→16:22)
[2017-12-24] MEDS: AMIODARONE HCL 200 MG TABLET PO SCH ×2 (08:14→21:23)
[2017-12-24] MEDS: ACETAMINOPHEN 325MG TABLET PO PRN (08:15)
[2017-12-24] MEDS: LACTOBACILLUS GG CAPSULE PO SCH (08:15)
[2017-12-24 08:17] LABS: BG BASE EXCESS -7.6 mmol/L (-2.0-2.0); BG CARBOXYHEMOGLOBIN 0.5 % (0.5-1.5); BG DEOXYHEMOGLOBIN 2.7 % (0.0-5.0); BG FRACTION INSPIRED OXYGEN 35; BG HCO3 ACT 16.5 mmol/L (22.0-26.0); BG METHEMOGLOBIN 0.4 % (0.0-1.5); BG OXYGEN SATURATION 97.3 % (92.0-98.5); BG OXYHEMOGLOBIN 96.4 % (94.0-97.0); BG PCO2 27.8 mmHg (35.0-45.0); BG PH 7.392 (7.350-7.450); BG PO2 99.1 mmHg (75.0-100.0); BG SAMPLE SITE RIGHT RADIAL; BG TIDAL VOLUME(mL) 500 mL; BG TOTAL HEMOGLOBIN 7.1 g/dL (12.0-18.0); BG VENT MODE VENT - A/C; BG VENT RATE 14 set
[2017-12-24] MEDS ORDERED: POTASSIUM CHLORIDE 20MEQ TABLET SR PO NR (11:00)
[2017-12-24] MEDS: SODIUM CHLORIDE 0.45% 1,000 ML IV SCH (12:18)
[2017-12-24] MEDS: QUETIAPINE FUMARATE 25MG TABLET PO SCH (13:02)
[2017-12-24] MEDS: MEROPENEM 1,000 MG in SODIUM CHLORIDE 0.9% 100 ML IV SCH (15:41)
[2017-12-24] MEDS: IPRATROPIUM/ALBUTEROL 0.5-3(2.5)MG/3ML NEB HHN PRN (20:25)
[2017-12-25] VITALS (99 sets, daily range): BP systolic 105–163; BP diastolic 48–80
[2017-12-25] MEDS: IPRATROPIUM/ALBUTEROL 0.5-3(2.5)MG/3ML NEB HHN PRN ×2 (00:08→04:17)
[2017-12-25] MEDS: METRONIDAZOLE 500 MG PREMIX 100 ML IV SCH ×3 (02:05→17:00)
[2017-12-25] MEDS: MEROPENEM 1,000 MG in SODIUM CHLORIDE 0.9% 100 ML IV SCH ×2 (04:57→16:25)
[2017-12-25] MEDS: VANCOMYCIN HCL 1000 MG/20 ML ORAL PO SCH ×3 (05:02→17:00)
[2017-12-25] MEDS: FENTANYL CITRATE/PF 500 MCG in SODIUM CHLORIDE 0.9% 40 ML IV PRN ×4 (05:16→22:17)
[2017-12-25] MEDS: SUCRALFATE 1 G/10 ML UDC PO SCH ×4 (05:43→21:47)
[2017-12-25] MEDS: BLOOD SUGAR DIAGNOSTIC STRIP TEST SCH ×4 (05:46→22:30)
[2017-12-25 06:00] LABS: BASOPHILS % 0.4 % (0.0-2.0); EOSINOPHILS % 0.1 % (0.0-5.0); LYMPHOCYTES % 7.2 % (20.0-50.0); MEAN CORPUSCULAR HEMOGLOBIN 29.4 pg (28.0-32.0); MEAN PLATELET VOLUME 9.1 fl (7.4-10.4); MONOCYTES % 7.8 % (2.0-8.0); NEUTROPHILS % 84.5 % (40.0-76.0); PLATELET 210 x1000/uL (130-400); RED BLOOD CELL COUNT 2.36 mill/uL (4.7-6.1); RED CELL DISTRIBUTION WIDTH 16.7 % (11.6-14.6)
[2017-12-25 06:06] LABS: HEMOGLOBIN. 6.9 g/dL (14.0-18.0)
[2017-12-25 06:33] LABS: PHOSPHORUS 4.4 mg/dL (2.5-4.9)
[2017-12-25] MEDS: INSULIN LISPRO 100 UNITS/ML SUBCUT SCH ×4 (07:00→22:00)
[2017-12-25] MEDS: SODIUM CHLORIDE 0.45% 1,000 ML IV SCH (08:16)
[2017-12-25 08:43] LABS: BG BASE EXCESS -8.4 mmol/L (-2.0-2.0); BG CARBOXYHEMOGLOBIN 0.5 % (0.5-1.5); BG DEOXYHEMOGLOBIN 2.1 % (0.0-5.0); BG HCO3 ACT 15.5 mmol/L (22.0-26.0); BG METHEMOGLOBIN 0.5 % (0.0-1.5); BG OXYGEN SATURATION 97.9 % (92.0-98.5); BG OXYHEMOGLOBIN 96.9 % (94.0-97.0); BG PCO2 25.4 mmHg (35.0-45.0); BG PH 7.402 (7.350-7.450); BG SAMPLE SITE RIGHT RADIAL; BG TIDAL VOLUME(mL) 500 mL; BG TOTAL HEMOGLOBIN 7.2 g/dL (12.0-18.0); BG VENT MODE VENT - A/C; BG VENT RATE 14 set
[2017-12-25] MEDS: MIDODRINE HCL 10 MG TABLET PO SCH ×3 (08:52→16:25)
[2017-12-25] MEDS: THIAMINE HCL 100MG TABLET PO SCH ×2 (08:52→16:25)
[2017-12-25] MEDS: QUETIAPINE FUMARATE 25MG TABLET PO SCH (08:52)
[2017-12-25] MEDS: PANTOPRAZOLE SODIUM 40 MG/VIAL IV SCH ×2 (08:52→21:46)
[2017-12-25] MEDS: AMIODARONE HCL 200 MG TABLET PO SCH ×2 (08:52→21:48)
[2017-12-25] MEDS: POTASSIUM CHLORIDE 20MEQ/PACKET NG SCH (08:52)
[2017-12-25] MEDS: LACTOBACILLUS GG CAPSULE PO SCH (08:53)
[2017-12-26] VITALS (89 sets, daily range): BP systolic 91–173; BP diastolic 43–103
[2017-12-26] MEDS: VANCOMYCIN HCL 1000 MG/20 ML ORAL PO SCH ×4 (00:12→18:05)
[2017-12-26] MEDS: METRONIDAZOLE 500 MG PREMIX 100 ML IV SCH ×3 (02:03→18:05)
[2017-12-26] MEDS: FENTANYL CITRATE/PF 500 MCG in SODIUM CHLORIDE 0.9% 40 ML IV PRN ×5 (04:12→18:19)
[2017-12-26] MEDS: MEROPENEM 1,000 MG in SODIUM CHLORIDE 0.9% 100 ML IV SCH ×2 (04:13→16:00)
[2017-12-26 05:33] LABS: HEMATOCRIT. 23.9 % (42.0-52.0); HEMOGLOBIN. 7.8 g/dL (14.0-18.0); MEAN CORPUSCULAR HEMOGLOBIN 29.1 pg (28.0-32.0); MEAN PLATELET VOLUME 8.7 fl (7.4-10.4); PLATELET 220 x1000/uL (130-400); RED BLOOD CELL COUNT 2.68 mill/uL (4.7-6.1); RED CELL DISTRIBUTION WIDTH 16.3 % (11.6-14.6)
[2017-12-26] MEDS: SODIUM CHLORIDE 0.45% 1,000 ML IV SCH (05:46)
[2017-12-26 05:47] LABS: PHOSPHORUS 4.7 mg/dL (2.5-4.9)
[2017-12-26] MEDS: BLOOD SUGAR DIAGNOSTIC STRIP TEST SCH ×4 (06:30→20:36)
[2017-12-26] MEDS: INSULIN LISPRO 100 UNITS/ML SUBCUT SCH ×4 (07:00→20:50)
[2017-12-26] MEDS: SUCRALFATE 1 G/10 ML UDC PO SCH ×4 (07:44→20:36)
[2017-12-26 08:47] LABS: BG BASE EXCESS -9.4 mmol/L (-2.0-2.0); BG CARBOXYHEMOGLOBIN 0.3 % (0.5-1.5); BG DEOXYHEMOGLOBIN 3.9 % (0.0-5.0); BG HCO3 ACT 15.1 mmol/L (22.0-26.0); BG METHEMOGLOBIN 0.3 % (0.0-1.5); BG OXYGEN SATURATION 96.1 % (92.0-98.5); BG OXYHEMOGLOBIN 95.5 % (94.0-97.0); BG PCO2 27.9 mmHg (35.0-45.0); BG PH 7.352 (7.350-7.450); BG PO2 93.9 mmHg (75.0-100.0); BG SAMPLE SITE RIGHT RADIAL; BG TIDAL VOLUME(mL) 500 mL; BG TOTAL HEMOGLOBIN 8.1 g/dL (12.0-18.0); BG VENT MODE VENT - A/C; BG VENT RATE 14 set
[2017-12-26 08:49] LABS: PLATELET ESTIMATE NORMAL
[2017-12-26] MEDS: LACTOBACILLUS GG CAPSULE PO SCH (08:58)
[2017-12-26] MEDS: PANTOPRAZOLE SODIUM 40 MG/VIAL IV SCH ×2 (08:58→20:36)
[2017-12-26] MEDS: QUETIAPINE FUMARATE 25MG TABLET PO SCH (08:58)
[2017-12-26] MEDS: THIAMINE HCL 100MG TABLET PO SCH ×2 (08:59→17:43)
[2017-12-26] MEDS: MIDODRINE HCL 10 MG TABLET PO SCH ×3 (08:59→17:43)
[2017-12-26] MEDS: AMIODARONE HCL 200 MG TABLET PO SCH ×2 (08:59→20:36)
[2017-12-26] MEDS ORDERED: IXAZ4CAP PO (19:30)
[2017-12-26] MEDS ORDERED: LENA5CAP MT (19:32)
[2017-12-27] VITALS (31 sets, daily range): BP systolic 102–133; BP diastolic 50–77
[2017-12-27] MEDS: VANCOMYCIN HCL 1000 MG/20 ML ORAL PO SCH ×5 (00:20→23:19)
[2017-12-27] MEDS: FENTANYL CITRATE/PF 500 MCG in SODIUM CHLORIDE 0.9% 40 ML IV PRN ×2 (01:34→07:34)
[2017-12-27] MEDS: METRONIDAZOLE 500 MG PREMIX 100 ML IV SCH ×3 (01:49→18:26)
[2017-12-27] MEDS: MEROPENEM 1,000 MG in SODIUM CHLORIDE 0.9% 100 ML IV SCH ×2 (03:06→16:54)
[2017-12-27 05:34] LABS: HEMATOCRIT. 24.4 % (42.0-52.0); HEMOGLOBIN. 7.8 g/dL (14.0-18.0); MEAN CORPUSCULAR HEMOGLOBIN 29.1 pg (28.0-32.0); MEAN CORPUSCULAR VOLUME 90.4 fL (80.0-94.0); MEAN PLATELET VOLUME 8.8 fl (7.4-10.4); PLATELET 201 x1000/uL (130-400); RED BLOOD CELL COUNT 2.69 mill/uL (4.7-6.1); RED CELL DISTRIBUTION WIDTH 16.6 % (11.6-14.6)
[2017-12-27 05:48] LABS: PHOSPHORUS 4.4 mg/dL (2.5-4.9)
[2017-12-27] MEDS: SUCRALFATE 1 G/10 ML UDC PO SCH ×4 (05:50→20:41)
[2017-12-27] MEDS: BLOOD SUGAR DIAGNOSTIC STRIP TEST SCH ×4 (05:50→21:00)
[2017-12-27] MEDS: INSULIN LISPRO 100 UNITS/ML SUBCUT SCH ×4 (06:20→21:00)
[2017-12-27 07:44] LABS: BG BASE EXCESS -8.4 mmol/L (-2.0-2.0); BG CARBOXYHEMOGLOBIN 0.3 % (0.5-1.5); BG DEOXYHEMOGLOBIN 4.4 % (0.0-5.0); BG FRACTION INSPIRED OXYGEN 35; BG HCO3 ACT 15.8 mmol/L (22.0-26.0); BG METHEMOGLOBIN 0.2 % (0.0-1.5); BG OXYGEN SATURATION 95.6 % (92.0-98.5); BG OXYHEMOGLOBIN 95.1 % (94.0-97.0); BG PCO2 28.2 mmHg (35.0-45.0); BG PH 7.367 (7.350-7.450); BG SAMPLE SITE RIGHT BRACHIAL; BG TIDAL VOLUME(mL) 500 mL; BG TOTAL HEMOGLOBIN 9.2 g/dL (12.0-18.0); BG VENT MODE VENT - A/C; BG VENT RATE 14 set
[2017-12-27] MEDS: QUETIAPINE FUMARATE 25MG TABLET PO SCH (09:49)
[2017-12-27] MEDS: PANTOPRAZOLE SODIUM 40 MG/VIAL IV SCH ×2 (09:49→20:42)
[2017-12-27] MEDS: THIAMINE HCL 100MG TABLET PO SCH ×2 (09:49→17:06)
[2017-12-27] MEDS: LACTOBACILLUS GG CAPSULE PO SCH (09:49)
[2017-12-27] MEDS: MIDODRINE HCL 10 MG TABLET PO SCH ×3 (09:50→17:06)
[2017-12-27] MEDS: AMIODARONE HCL 200 MG TABLET PO SCH ×2 (09:50→20:41)
[2017-12-27 10:20] LABS: PLATELET ESTIMATE NORMAL
[2017-12-27] MEDS ORDERED: MAGNESIUM 2 G PREMIX 50 ML IV NR ×2 (10:30→14:30)
[2017-12-27] MEDS: CITRIC ACID/SODIUM CITRATE SOLN 30ML UDC NG SCH ×2 (14:29→17:06)
[2017-12-27] MEDS: ACETAMINOPHEN 325MG TABLET PO PRN (20:42)
[2017-12-27] MEDS ORDERED: FENTANYL CITRATE/PF 1,000 MCG in SODIUM CHLORIDE 0.9% 80 ML IV PRN (23:00)
[2017-12-27] MEDS ORDERED: VANCOMYCIN 1,750 MG in DEXT 5% WATER 500 ML IV NR (23:00)
[2017-12-27] MEDS: MICAFUNGIN 100 MG in SODIUM CHLORIDE 0.9% 100 ML IV SCH (23:18)
[2017-12-28] VITALS (30 sets, daily range): BP systolic 94–152; BP diastolic 47–113
[2017-12-28] MEDS: MEROPENEM 1,000 MG in SODIUM CHLORIDE 0.9% 100 ML IV SCH ×2 (03:15→17:22)
[2017-12-28] MEDS: VANCOMYCIN HCL 1000 MG/20 ML ORAL PO SCH ×4 (05:34→22:57)
[2017-12-28] MEDS: SUCRALFATE 1 G/10 ML UDC PO SCH ×4 (05:34→22:56)
[2017-12-28] MEDS: BLOOD SUGAR DIAGNOSTIC STRIP TEST SCH (05:35)
[2017-12-28 05:42] LABS: BASOPHILS % 0.2 % (0.0-2.0); EOSINOPHILS % 0.1 % (0.0-5.0); HEMATOCRIT. 24.9 % (42.0-52.0); HEMOGLOBIN. 7.9 g/dL (14.0-18.0); LYMPHOCYTES % 9.1 % (20.0-50.0); MEAN CORPUSCULAR VOLUME 92.1 fL (80.0-94.0); MEAN PLATELET VOLUME 8.1 fl (7.4-10.4); MONOCYTES % 11.6 % (2.0-8.0); PLATELET 204 x1000/uL (130-400); RED BLOOD CELL COUNT 2.71 mill/uL (4.7-6.1); RED CELL DISTRIBUTION WIDTH 16.9 % (11.6-14.6)
[2017-12-28] MEDS: INSULIN LISPRO 100 UNITS/ML SUBCUT SCH (05:49)
[2017-12-28 06:11] LABS: PHOSPHORUS 4.2 mg/dL (2.5-4.9)
[2017-12-28] MEDS ORDERED: POTASSIUM CHLORIDE INJ 40 MEQ in DEXT 5% WATER 250 ML IV SCH (07:30)
[2017-12-28] MEDS: THIAMINE HCL 100MG TABLET PO SCH ×2 (09:07→17:27)
[2017-12-28] MEDS: PANTOPRAZOLE SODIUM 40 MG/VIAL IV SCH ×2 (09:07→22:56)
[2017-12-28] MEDS: QUETIAPINE FUMARATE 25MG TABLET PO SCH (09:07)
[2017-12-28] MEDS: LACTOBACILLUS GG CAPSULE PO SCH (09:07)
[2017-12-28] MEDS: CITRIC ACID/SODIUM CITRATE SOLN 30ML UDC NG SCH ×3 (09:07→17:27)
[2017-12-28] MEDS: MIDODRINE HCL 10 MG TABLET PO SCH ×3 (09:07→17:27)
[2017-12-28] MEDS: AMIODARONE HCL 200 MG TABLET PO SCH ×2 (09:07→22:57)
[2017-12-28] MEDS: MICAFUNGIN 100 MG in SODIUM CHLORIDE 0.9% 100 ML IV SCH (22:56)
[2017-12-28] MEDS: VANCOMYCIN 1 G PREMIX 200 ML IV SCH (23:03)
[2017-12-29] VITALS (61 sets, daily range): BP systolic 115–171; BP diastolic 56–89
[2017-12-29] MEDS ORDERED: ETOMIDATE 2MG/ML 10ML VIAL IV ONE
[2017-12-29] MEDS ORDERED: SUCCINYLCHOLINE CHLORIDE 200MG/10ML VIAL IV ONE
[2017-12-29] MEDS: MEROPENEM 1,000 MG in SODIUM CHLORIDE 0.9% 100 ML IV SCH ×2 (03:39→15:30)
[2017-12-29] MEDS: LORAZEPAM 2MG/ML CPJ IM PRN (04:47)
[2017-12-29] MEDS: SUCRALFATE 1 G/10 ML UDC PO SCH ×4 (05:48→21:39)
[2017-12-29] MEDS: VANCOMYCIN HCL 1000 MG/20 ML ORAL PO SCH ×3 (05:49→18:17)
[2017-12-29 05:53] LABS: HEMATOCRIT. 22.9 % (42.0-52.0); HEMOGLOBIN. 7.5 g/dL (14.0-18.0); MEAN CORPUSCULAR HEMOGLOBIN 28.9 pg (28.0-32.0); MEAN CORPUSCULAR VOLUME 87.8 fL (80.0-94.0); MEAN PLATELET VOLUME 8.2 fl (7.4-10.4); PLATELET 200 x1000/uL (130-400); RED CELL DISTRIBUTION WIDTH 16.9 % (11.6-14.6)
[2017-12-29 06:17] LABS: PHOSPHORUS 4.6 mg/dL (2.5-4.9)
[2017-12-29] MEDS: IPRATROPIUM/ALBUTEROL 0.5-3(2.5)MG/3ML NEB HHN PRN (08:00)
[2017-12-29] MEDS: DEXT 5%/0.45% NACL KCL 20MEQ/L 1,000 ML IV SCH (08:30)
[2017-12-29] MEDS: QUETIAPINE FUMARATE 25MG TABLET PO SCH (09:00)
[2017-12-29] MEDS: AMIODARONE HCL 200 MG TABLET PO SCH ×2 (09:00→21:39)
[2017-12-29] MEDS: THIAMINE HCL 100MG TABLET PO SCH ×2 (09:00→18:17)
[2017-12-29] MEDS: LACTOBACILLUS GG CAPSULE PO SCH (09:00)
[2017-12-29] MEDS: CITRIC ACID/SODIUM CITRATE SOLN 30ML UDC NG SCH ×3 (09:00→17:00)
[2017-12-29] MEDS: PANTOPRAZOLE SODIUM 40 MG/VIAL IV SCH ×2 (09:00→21:39)
[2017-12-29] MEDS: MIDODRINE HCL 10 MG TABLET PO SCH ×3 (09:00→17:00)
[2017-12-29 09:29] LABS: PLATELET ESTIMATE NORMAL
[2017-12-29 11:44] LABS: INR 1.5; PARTIAL THROMBOPLASTIN TIME 43.9 sec (23.4-31.0); PROTHROMBIN TIME 14.5 sec (9.1-11.1)
[2017-12-29] MEDS ORDERED: ROCURONIUM BROMIDE 10MG/ML VIAL 5ML IV ONE (16:08)
[2017-12-29] MEDS ORDERED: FENTANYL CITRATE/PF 50MCG/ML 2ML VIAL ONE (16:08)
[2017-12-29] MEDS ORDERED: MIDAZOLAM HCL 2 MG/2 ML VIAL ONE (16:08)
[2017-12-29] MEDS ORDERED: SODIUM CHLORIDE 0.9% 10ML VIAL ONE (16:23)
[2017-12-29] MEDS: MICAFUNGIN 100 MG in SODIUM CHLORIDE 0.9% 100 ML IV SCH (21:39)
[2017-12-30] VITALS (75 sets, daily range): BP systolic 95–147; BP diastolic 52–86
[2017-12-30] MEDS: VANCOMYCIN HCL 1000 MG/20 ML ORAL PO SCH ×4 (00:31→17:51)
[2017-12-30] MEDS: FENTANYL CITRATE/PF 1,000 MCG in SODIUM CHLORIDE 0.9% 80 ML IV PRN ×2 (00:31→10:26)
[2017-12-30] MEDS: VANCOMYCIN 1 G PREMIX 200 ML IV SCH (00:31)
[2017-12-30] MEDS: MEROPENEM 1,000 MG in SODIUM CHLORIDE 0.9% 100 ML IV SCH ×2 (04:39→15:52)
[2017-12-30] MEDS: SUCRALFATE 1 G/10 ML UDC PO SCH ×4 (04:39→20:26)
[2017-12-30] MEDS: DEXT 5%/0.45% NACL KCL 20MEQ/L 1,000 ML IV SCH (04:40)
[2017-12-30] MEDS: LORAZEPAM 2MG/ML CPJ IM PRN (04:53)
[2017-12-30 05:02] LABS: HEMATOCRIT. 22.4 % (42.0-52.0); HEMOGLOBIN. 7.4 g/dL (14.0-18.0); MEAN CORPUSCULAR HEMOGLOBIN 29.1 pg (28.0-32.0); MEAN CORPUSCULAR VOLUME 87.7 fL (80.0-94.0); PLATELET 190 x1000/uL (130-400); RED BLOOD CELL COUNT 2.55 mill/uL (4.7-6.1); RED CELL DISTRIBUTION WIDTH 16.4 % (11.6-14.6)
[2017-12-30 05:27] LABS: PHOSPHORUS 5.1 mg/dL (2.5-4.9)
[2017-12-30] MEDS ORDERED: DEXT 5% WATER + KCL 20MEQ/L 1,000 ML IV SCH ×2 (08:00→20:00)
[2017-12-30 08:07] LABS: PLATELET ESTIMATE NORMAL
[2017-12-30] MEDS ORDERED: POTASSIUM CHLORIDE INJ 40 MEQ in DEXT 5% WATER 250 ML IV NR (09:00)
[2017-12-30] MEDS: CITRIC ACID/SODIUM CITRATE SOLN 30ML UDC NG SCH ×3 (09:27→17:51)
[2017-12-30] MEDS: QUETIAPINE FUMARATE 25MG TABLET PO SCH (09:27)
[2017-12-30] MEDS: PANTOPRAZOLE SODIUM 40 MG/VIAL IV SCH ×2 (09:27→20:26)
[2017-12-30] MEDS: THIAMINE HCL 100MG TABLET PO SCH ×2 (09:27→17:50)
[2017-12-30] MEDS: LACTOBACILLUS GG CAPSULE PO SCH (09:28)
[2017-12-30] MEDS: MIDODRINE HCL 5MG TABLET PO SCH ×3 (09:28→17:50)
[2017-12-30] MEDS: AMIODARONE HCL 200 MG TABLET PO SCH ×2 (09:29→20:26)
[2017-12-30] MEDS ORDERED: SODIUM BICARBONATE 4% (2.4MEQ) 5ML VIAL IV ONE (10:47)
[2017-12-30] MEDS ORDERED: LIDOCAINE HCL 1% 10 MG/ML 10ML VIAL ONE ×2 (10:47→11:51)
[2017-12-30] MEDS: MICAFUNGIN 100 MG in SODIUM CHLORIDE 0.9% 100 ML IV SCH (20:26)
[2017-12-30] MEDS: TOTAL PARENTERAL NUTRITION 1,000 ML IV SCH (21:08)
[2017-12-31] VITALS (74 sets, daily range): BP systolic 108–160; BP diastolic 54–88
[2017-12-31] MEDS: FENTANYL CITRATE/PF 1,000 MCG in SODIUM CHLORIDE 0.9% 80 ML IV PRN (02:59)
[2017-12-31] MEDS: MEROPENEM 1,000 MG in SODIUM CHLORIDE 0.9% 100 ML IV SCH (03:51)
[2017-12-31 05:34] LABS: CHLORIDE 118 mEq/L (98-107); HEMATOCRIT. 21.8 % (42.0-52.0); HEMOGLOBIN. 7.1 g/dL (14.0-18.0); MEAN CORPUSCULAR HEMOGLOBIN 28.7 pg (28.0-32.0); MEAN CORPUSCULAR VOLUME 87.9 fL (80.0-94.0); PLATELET 203 x1000/uL (130-400); RED BLOOD CELL COUNT 2.48 mill/uL (4.7-6.1); RED CELL DISTRIBUTION WIDTH 16.8 % (11.6-14.6)
[2017-12-31 05:40] LABS: PHOSPHORUS 4.5 mg/dL (2.5-4.9)
[2017-12-31] MEDS: SUCRALFATE 1 G/10 ML UDC PO SCH ×4 (05:40→20:51)
[2017-12-31] MEDS ORDERED: DEXTROSE 50% WATER 50ML SYRINGE IV PRN (08:45)
[2017-12-31] MEDS: LACTOBACILLUS GG CAPSULE PO SCH (09:00)
[2017-12-31 09:14] LABS: PLATELET ESTIMATE NORMAL
[2017-12-31] MEDS: QUETIAPINE FUMARATE 25MG TABLET PO SCH (09:38)
[2017-12-31] MEDS: PANTOPRAZOLE SODIUM 40 MG/VIAL IV SCH ×2 (09:38→20:51)
[2017-12-31] MEDS: AMIODARONE HCL 200 MG TABLET PO SCH ×2 (09:39→20:53)
[2017-12-31] MEDS ORDERED: LORAZEPAM 2MG/ML CPJ IM PRN (12:00)
[2017-12-31] MEDS ORDERED: VANCOMYCIN 1 G PREMIX 200 ML IV SCH ×2 (12:00→18:00)
[2017-12-31] MEDS: BLOOD SUGAR DIAGNOSTIC STRIP TEST SCH ×2 (12:26→18:00)
[2017-12-31] MEDS: INSULIN LISPRO 100 UNITS/ML SUBCUT SCH ×2 (12:30→18:00)
[2017-12-31] MEDS: MORPHINE SULFATE 4 MG/ML CPJ (NOT FOR IM USE) IV PRN ×3 (14:02→23:24)
[2017-12-31] MEDS ORDERED: MEROPENEM 1,000 MG in SODIUM CHLORIDE 0.9% 100 ML IV SCH (16:00)
[2017-12-31] MEDS: TOTAL PARENTERAL NUTRITION 1,000 ML IV SCH (16:55)
[2017-12-31] MEDS: MICAFUNGIN 100 MG in SODIUM CHLORIDE 0.9% 100 ML IV SCH (20:51)
[2017-12-31] MEDS ORDERED: TOTAL PARENTERAL NUTRITION 1,600 ML IV SCH (21:00)
[2018-01-01] VITALS (51 sets, daily range): BP systolic 118–163; BP diastolic 60–87
[2018-01-01] MEDS: BLOOD SUGAR DIAGNOSTIC STRIP TEST SCH ×4 (00:03→17:00)
[2018-01-01] MEDS: INSULIN LISPRO 100 UNITS/ML SUBCUT SCH ×4 (00:04→17:05)
[2018-01-01] MEDS: MORPHINE SULFATE 4 MG/ML CPJ (NOT FOR IM USE) IV PRN ×8 (02:03→22:06)
[2018-01-01 05:29] LABS: BASOPHILS % 0.2 % (0.0-2.0); EOSINOPHILS % 0.3 % (0.0-5.0); HEMATOCRIT. 21.5 % (42.0-52.0); HEMOGLOBIN. 7.1 g/dL (14.0-18.0); LYMPHOCYTES % 7.1 % (20.0-50.0); MEAN CORPUSCULAR HEMOGLOBIN 29.3 pg (28.0-32.0); MEAN CORPUSCULAR VOLUME 88.3 fL (80.0-94.0); MEAN PLATELET VOLUME 7.6 fl (7.4-10.4); MONOCYTES % 9.8 % (2.0-8.0); NEUTROPHILS % 82.6 % (40.0-76.0); PLATELET 218 x1000/uL (130-400); RED BLOOD CELL COUNT 2.44 mill/uL (4.7-6.1); RED CELL DISTRIBUTION WIDTH 16.8 % (11.6-14.6)
[2018-01-01 05:33] LABS: CHLORIDE 117 mEq/L (98-107)
[2018-01-01] MEDS: SUCRALFATE 1 G/10 ML UDC PO SCH ×4 (05:37→20:05)
[2018-01-01 05:41] LABS: PHOSPHORUS 4.1 mg/dL (2.5-4.9)
[2018-01-01] MEDS: IPRATROPIUM/ALBUTEROL 0.5-3(2.5)MG/3ML NEB HHN PRN ×3 (08:08→16:23)
[2018-01-01] MEDS: LACTOBACILLUS GG CAPSULE PO SCH (08:29)
[2018-01-01] MEDS: AMIODARONE HCL 200 MG TABLET PO SCH ×2 (08:29→20:05)
[2018-01-01] MEDS: QUETIAPINE FUMARATE 25MG TABLET PO SCH (08:29)
[2018-01-01] MEDS: PANTOPRAZOLE SODIUM 40 MG/VIAL IV SCH ×2 (08:29→20:05)
[2018-01-01] MEDS: MICAFUNGIN 100 MG in SODIUM CHLORIDE 0.9% 100 ML IV SCH (20:05)
[2018-01-01] MEDS ORDERED: TOTAL PARENTERAL NUTRITION 1,600 ML IV SCH (21:00)
== END 2018-01-01 22:10 | DRG 3 ==
LOC: ER 16:26 → 5WST 20:23 → EDBEDREQ 20:29 → EDBEDREQTM 20:29 → ENRESERV 22:29 → MICUSO 12-10 08:47 → 5EST 12-14 16:15 → MICUSO 12-17 10:32
PROVIDERS: ADMIT Hospitalist; ATTEND Hospitalist
PROC: 02HV33Z Insertion of Infusion Device into Superior Vena Cava, Percutaneous Approach (ICD-10-PCS; 2017-12-10)
PROC: B548ZZA Ultrasonography of Superior Vena Cava, Guidance (ICD-10-PCS; 2017-12-10)
PROC: 30233N1 Transfusion of Nonautologous Red Blood Cells into Peripheral Vein, Percutaneous Approach (ICD-10-PCS; 2017-12-13)
PROC: 5A1955Z Respiratory Ventilation, Greater than 96 Consecutive Hours (ICD-10-PCS; principal; 2017-12-17)
PROC: 0BH18EZ Insertion of Endotracheal Airway into Trachea, Via Natural or Artificial Opening Endoscopic (ICD-10-PCS; 2017-12-17)
PROC: 5A12012 Performance of Cardiac Output, Single, Manual (ICD-10-PCS; 2017-12-17)
PROC: 0W9G30Z Drainage of Peritoneal Cavity with Drainage Device, Percutaneous Approach (ICD-10-PCS; 2017-12-17)
PROC: 0B110F4 Bypass Trachea to Cutaneous with Tracheostomy Device, Open Approach (ICD-10-PCS; 2017-12-29)
PROC: 0GBJ0ZZ Excision of Thyroid Gland Isthmus, Open Approach (ICD-10-PCS; 2017-12-29)
PROC: 30233L1 Transfusion of Nonautologous Fresh Plasma into Peripheral Vein, Percutaneous Approach (ICD-10-PCS; 2017-12-29)
PROC: 30233K1 Transfusion of Nonautologous Frozen Plasma into Peripheral Vein, Percutaneous Approach (ICD-10-PCS; 2017-12-29)
PROC: 0BH17EZ Insertion of Endotracheal Airway into Trachea, Via Natural or Artificial Opening (ICD-10-PCS; 2017-12-29)
PROC: 0F9030Z Drainage of Liver with Drainage Device, Percutaneous Approach (ICD-10-PCS; 2017-12-30)
PROC: 0W9J30Z Drainage of Pelvic Cavity with Drainage Device, Percutaneous Approach (ICD-10-PCS; 2017-12-30)
PROC: 079P30Z Drainage of Spleen with Drainage Device, Percutaneous Approach (ICD-10-PCS; 2017-12-30)
DX: A41.51 Sepsis due to Escherichia coli [E. coli] (principal); E43 Unspecified severe protein-calorie malnutrition; J96.00 Acute respiratory failure, unspecified whether with hypoxia or hypercapnia; R65.21 Severe sepsis with septic shock; N17.0 Acute kidney failure with tubular necrosis; I49.01 Ventricular fibrillation; G93.40 Encephalopathy, unspecified; K63.1 Perforation of intestine (nontraumatic); K65.8 Other peritonitis; K65.1 Peritoneal abscess; I46.9 Cardiac arrest, cause unspecified; C90.00 Multiple myeloma not having achieved remission; N17.9 Acute kidney failure, unspecified; N18.4 Chronic kidney disease, stage 4 (severe); D62 Acute posthemorrhagic anemia; D68.59 Other primary thrombophilia; E87.0 Hyperosmolality and hypernatremia; E87.4 Mixed disorder of acid-base balance; I13.0 Hypertensive heart and chronic kidney disease with heart failure and stage 1 through stage 4 chronic kidney disease, or unspecified chronic kidney disease; I50.42 Chronic combined systolic (congestive) and diastolic (congestive) heart failure; I82.503 Chronic embolism and thrombosis of unspecified deep veins of lower extremity, bilateral; K56.0 Paralytic ileus; R18.8 Other ascites; J98.11 Atelectasis; K92.0 Hematemesis; R65.20 Severe sepsis without septic shock; I11.9 Hypertensive heart disease without heart failure; N18.9 Chronic kidney disease, unspecified; Z51.5 Encounter for palliative care; D64.9 Anemia, unspecified; B96.6 Bacteroides fragilis [B. fragilis] as the cause of diseases classified elsewhere; E11.22 Type 2 diabetes mellitus with diabetic chronic kidney disease; E78.00 Pure hypercholesterolemia, unspecified; E78.5 Hyperlipidemia, unspecified; E83.39 Other disorders of phosphorus metabolism; E87.6 Hypokalemia; G89.4 Chronic pain syndrome; R74.0 Nonspecific elevation of levels of transaminase and lactic acid dehydrogenase [LDH]; R62.7 Adult failure to thrive; B95.2 Enterococcus as the cause of diseases classified elsewhere; B95.61 Methicillin susceptible Staphylococcus aureus infection as the cause of diseases classified elsewhere; F41.9 Anxiety disorder, unspecified; E83.42 Hypomagnesemia; I25.10 Atherosclerotic heart disease of native coronary artery without angina pectoris; I25.5 Ischemic cardiomyopathy; L89.152 Pressure ulcer of sacral region, stage 2; I35.1 Nonrheumatic aortic (valve) insufficiency; J44.9 Chronic obstructive pulmonary disease, unspecified; Z86.73 Personal history of transient ischemic attack (TIA), and cerebral infarction without residual deficits; Z68.29 Body mass index [BMI] 29.0-29.9, adult; Z87.891 Personal history of nicotine dependence; I25.2 Old myocardial infarction; Z82.49 Family history of ischemic heart disease and other diseases of the circulatory system; Z85.038 Personal history of other malignant neoplasm of large intestine; Z90.49 Acquired absence of other specified parts of digestive tract; Z91.19 Patient's noncompliance with other medical treatment and regimen; Z99.3 Dependence on wheelchair; Z79.899 Other long term (current) drug therapy; Z79.82 Long term (current) use of aspirin; Z99.2 Dependence on renal dialysis
CPT/HCPCS: 36415; 36569; 36600; 49083; 71045; 74018; 74176; 76705; 76770; 76937; 76942; 80048; 80053; 80076; 80202; 81003; 82140; 82270; 82375; 82550; 82553; 82784; 82805; 82962; 83605; 83690; 83735; 83880; 83930; 84100; 84134; 84484; 85014; 85018; 85025; 85049; 85379; 85384; 85610; 85730; 86850; 86870; 86880; 86900; 86920; 86927; 87015; 87040; 87045; 87070; 87076; 87077; 87086; 87186; 87205; 87427; 87449; 88108; 88312; 89055; 92950; 93005; 93306; 94002; 94003; 94640; 96361; 96374; 96375; 97162; 97164; 99285; A4216; A6261; C1725; C1729; C1769; C1893; C9113; J0282; J0330; J0692; J1170; J1815; J2060; J2185; J2248; J2250; J2270; J2370; J2405; J2543; J2765; J3010; J3370; J3475; J3480; J3490; J7030; J7040; J7042; J7050; J7060; J7070; J7620; L8514; P9016; P9017; P9047; Q9963; A4315